=== PATIENT | female | born 1940 | race Caucasian/White ===

== ENCOUNTER → 2016-11-06 | Outpatient (CLI) | payer MEDICARE, BC, OTHER ==
[~2016-11-06] MED LIST: CARV6.25 PO; DIGO0.12 PO; FLEC25TA PO; FLEC50TA PO; LEXA1TAB PO; TYLE500T78 PO; VITA200015 PO; WARF-18 PO; XANA0.25 PO
[2016-11-06 13:49] LABS: INR 2.36
== END ==
LOC: M SMT 10:30
PROVIDERS: ATTEND Emergency Medicine
DX: I48.0 Paroxysmal atrial fibrillation (principal)

== ENCOUNTER → 2016-12-04 | Outpatient (REF) | payer MEDICARE, OTHER ==
[2016-12-04 14:18] LABS: INR 2.46
== END ==
LOC: M LABSMT 13:16
PROVIDERS: ATTEND Emergency Medicine
DX: I48.0 Paroxysmal atrial fibrillation (principal); Z51.81 Encounter for therapeutic drug level monitoring; Z79.01 Long term (current) use of anticoagulants

== ENCOUNTER → 2017-01-04 | Outpatient (CLI) | payer MEDICARE, BC, OTHER ==
[2017-01-04 18:20] LABS: INR 2.43
== END ==
LOC: M SMT 14:29
PROVIDERS: ATTEND Emergency Medicine
DX: I48.0 Paroxysmal atrial fibrillation (principal)

== ENCOUNTER → 2017-02-09 | Outpatient (CLI) | payer MEDICARE, BC, OTHER ==
[2017-02-09 14:12] LABS: INR 2.43
== END ==
LOC: M SMT 08:41
PROVIDERS: ATTEND Emergency Medicine
DX: I48.0 Paroxysmal atrial fibrillation (principal); Z51.81 Encounter for therapeutic drug level monitoring; Z79.01 Long term (current) use of anticoagulants

== ENCOUNTER → 2017-03-07 | Outpatient (CLI) | payer MEDICARE, BC, OTHER ==
[2017-03-07 13:30] LABS: INR 2.3
== END ==
LOC: M SMT 09:26
PROVIDERS: ATTEND Emergency Medicine
DX: Z51.81 Encounter for therapeutic drug level monitoring (principal); Z79.01 Long term (current) use of anticoagulants; I48.0 Paroxysmal atrial fibrillation

== ENCOUNTER → 2017-03-13 | Outpatient (CLI) | payer MEDICARE, BC, OTHER ==
[2017-03-13 13:41] LABS: INR 2.36
[2017-03-13 13:45] LABS: ALBUMIN 3.2 GM/DL (3.2-5.2); ALBUMIN/GLOBULIN RATIO 0.94 (1.00-1.93); BASO % 0.7 % (0.0-1.0); BILIRUBIN,TOTAL 0.5 MG/DL (0.2-1.0); CALCIUM LEVEL 8.3 MG/DL (8.8-10.2); CREATININE FOR GFR 1.1 MG/DL (0.55-1.02); DIGOXIN LEVEL 1.2 NG/ML (0.5-2.0); EOS # 0.2 K/mm3 (0.0-0.50); EOS % 3.3 % (0.0-3.0); GLOMERULAR FILTRATION RATE 51.4 (>39); LARGE UNSTAINED CELL # 0.1 K/mm3 (0.0-0.4); LARGE UNSTAINED CELL % 1.5 % (0.0-4.0); LYMPH # 1.5 K/mm3 (1.5-4.5); LYMPH % 25.8 % (24.0-44.0); MAGNESIUM LEVEL 1.8 MG/DL (1.8-2.4); MEAN CORPUSCULAR HGB CONC 32.7 g/dl (32.0-36.5); MEAN CORPUSCULAR VOLUME 91.8 fl (80.0-96.0); MONO # 0.4 K/mm3 (0.0-0.8); MONO % 7.7 % (0.0-5.0); NEUTROPHILS # 3.3 K/mm3 (1.8-7.7); PLATELET COUNT, AUTOMATED 183 k/mm3 (150-450); POTASSIUM SERUM 3.8 MEQ/L (3.5-5.1); RED CELL DISTRIBUTION WIDTH 12.7 % (11.5-14.5); TOTAL PROTEIN 6.6 GM/DL (6.4-8.2); WHITE BLOOD COUNT 5.4 K/mm3 (4.0-10.0)
== END ==
LOC: M SMT 09:24
PROVIDERS: ATTEND Emergency Medicine
DX: I48.0 Paroxysmal atrial fibrillation (principal); E78.2 Mixed hyperlipidemia; E55.9 Vitamin D deficiency, unspecified; I10 Essential (primary) hypertension

== ENCOUNTER → 2017-04-05 | Outpatient (CLI) | payer MEDICARE, BC, OTHER ==
[2017-04-05 17:37] LABS: INR 2.68
== END ==
LOC: M SMT 14:08
PROVIDERS: ATTEND Emergency Medicine
DX: I48.0 Paroxysmal atrial fibrillation (principal); Z51.81 Encounter for therapeutic drug level monitoring; Z79.01 Long term (current) use of anticoagulants

== ENCOUNTER → 2017-05-02 | Outpatient (CLI) | payer MEDICARE, BC, OTHER ==
[2017-05-02 13:25] LABS: INR 2.01
== END ==
LOC: M SMT 10:33
PROVIDERS: ATTEND Emergency Medicine
DX: I80.02 Phlebitis and thrombophlebitis of superficial vessels of left lower extremity (principal); Z51.81 Encounter for therapeutic drug level monitoring; Z79.01 Long term (current) use of anticoagulants

== ENCOUNTER → 2017-05-03 | Outpatient (REF) | payer MEDICARE, BC, OTHER | LOC: M LAB REF 20:03 | PROVIDERS: ATTEND Physician Assistant | DX: J04.0 Acute laryngitis (principal) ==

== ENCOUNTER → 2017-06-05 | Outpatient (CLI) | payer MEDICARE, BC, OTHER ==
[2017-06-05 18:50] LABS: INR 2.21
== END ==
LOC: M SMT 14:07
PROVIDERS: ATTEND Emergency Medicine
DX: I80.02 Phlebitis and thrombophlebitis of superficial vessels of left lower extremity (principal); Z51.81 Encounter for therapeutic drug level monitoring; Z79.01 Long term (current) use of anticoagulants

== ENCOUNTER → 2017-07-09 | Outpatient (CLI) | payer MEDICARE, BC, OTHER ==
[2017-07-09 13:38] LABS: INR 2.16
== END ==
LOC: M SMT 11:10
PROVIDERS: ATTEND Emergency Medicine
DX: I80.02 Phlebitis and thrombophlebitis of superficial vessels of left lower extremity (principal)

== ENCOUNTER → 2017-07-20 | Outpatient (CLI) | payer MEDICARE, BC, OTHER ==
--- NOTE | 2017-07-20 11:52 | REPMRS ---
Patient History Patient is postmenopausal and has history of breast cancer at age 67.The patient states she had a clinical breast exam in June 2017.Patient states she has had a 15 pound weight loss due to stress. Digital Mammo Screening Bilat: July 20, 2017 - Exam #: [id number] Bilateral CC and MLO view(s) were taken. Technologist: Jodie Mao, Technologist Prior study comparison: July 18, 2016, bilateral digital mammo screening bilat performed at [facility]. July 14, 2015, bilateral digital mammo screening bilat performed at [facility]. FINDINGS: The breast tissue is heterogeneously dense. This may lower the sensitivity of mammography. There is no evidence of cancer on this mammogram. No significant changes when compared with prior studies. ASSESSMENT: BI-RADS/ACR category 2 mammogram. Benign finding(s). Recommendation Routine screening mammogram of both breasts in 1 year (for women over age 40). This mammogram was interpreted with the aid of an FDA-approved computer-aided dectection system. Electronically Signed By: Jim Pedraza MD 07/20/17 [id number]
== END ==
LOC: M RAD 10:52
PROVIDERS: ATTEND Emergency Medicine
DX: Z12.31 Encounter for screening mammogram for malignant neoplasm of breast (principal)

== ENCOUNTER → 2017-08-10 | Outpatient (CLI) | payer MEDICARE, BC, OTHER ==
[2017-08-10 13:46] LABS: INR 1.91
== END ==
LOC: M SMT 10:21
PROVIDERS: ATTEND Emergency Medicine
DX: I80.02 Phlebitis and thrombophlebitis of superficial vessels of left lower extremity (principal)

== ENCOUNTER → 2017-09-12 | Outpatient (CLI) | payer MEDICARE, BC, OTHER ==
[2017-09-12 13:14] LABS: BASO % 0.3 % (0.0-1.0); EOS # 0.2 10^3/uL (0.0-0.50); IMMATURE GRANULOCYTE % 0.3 % (0-0); LYMPH # 1.4 10^3/uL (1.5-4.5); LYMPH % 21.9 % (24.0-44.0); MEAN CORPUSCULAR HEMOGLOBIN 29.5 pg (27.0-33.0); MEAN CORPUSCULAR HGB CONC 32.7 g/dl (32.0-36.5); MEAN CORPUSCULAR VOLUME 90.3 fl (80.0-96.0); MONO # 0.6 10^3/uL (0.0-0.8); MONO % 8.8 % (0.0-5.0); NEUTROPHILS # 4.2 10^3/uL (1.8-7.7); NEUTROPHILS % 65.7 % (36.0-66.0); PLATELET COUNT, AUTOMATED 212 10^3/uL (150-450); RED CELL DISTRIBUTION WIDTH 12.9 % (11.5-14.5); WHITE BLOOD COUNT 6.4 10^3/uL (4.0-10.0)
[2017-09-12 13:20] LABS: INR 2.09
[2017-09-12 14:04] LABS: ALBUMIN 3.3 GM/DL (3.2-5.2); ALBUMIN/GLOBULIN RATIO 0.83 (1.00-1.93); BILIRUBIN,TOTAL 0.4 MG/DL (0.2-1.0); CREATININE FOR GFR 1.09 MG/DL (0.55-1.02); DIGOXIN LEVEL 1.2 NG/ML (0.5-2.0); GLOMERULAR FILTRATION RATE 51.8 (>39); MAGNESIUM LEVEL 1.9 MG/DL (1.8-2.4); TOTAL PROTEIN 7.3 GM/DL (6.4-8.2)
== END ==
LOC: M SMT 09:19
PROVIDERS: ATTEND Emergency Medicine
DX: I48.0 Paroxysmal atrial fibrillation (principal); E78.2 Mixed hyperlipidemia; E55.9 Vitamin D deficiency, unspecified; I10 Essential (primary) hypertension

== ENCOUNTER → 2017-10-15 | Outpatient (CLI) | payer MEDICARE, BC, OTHER ==
[2017-10-15 11:36] LABS: INR 2.2
== END ==
LOC: M SMT 09:21
PROVIDERS: ATTEND Emergency Medicine
DX: I80.02 Phlebitis and thrombophlebitis of superficial vessels of left lower extremity (principal); Z79.01 Long term (current) use of anticoagulants

== ENCOUNTER → 2017-11-14 | Outpatient (CLI) | payer MEDICARE, BC, OTHER ==
[2017-11-14 13:29] LABS: INR 2.46; PROTHROMBIN TIME 27.7 SECONDS (12.4-14.5)
== END ==
LOC: M SMT 09:57
DX: I80.02 Phlebitis and thrombophlebitis of superficial vessels of left lower extremity (principal)
CPT/HCPCS: 85610

== ENCOUNTER → 2017-12-14 | Outpatient (CLI) | payer MEDICARE, BC, OTHER ==
[2017-12-14 13:54] LABS: INR 2.52; PROTHROMBIN TIME 28.2 SECONDS (12.4-14.5)
== END ==
LOC: M SMT 10:04
DX: I80.02 Phlebitis and thrombophlebitis of superficial vessels of left lower extremity (principal); Z79.01 Long term (current) use of anticoagulants
CPT/HCPCS: 85610

== ENCOUNTER → 2018-01-14 | Outpatient (CLI) | payer MEDICARE, BC, OTHER ==
[2018-01-14 10:54] LABS: INR 2.35; PROTHROMBIN TIME 26.6 SECONDS (12.4-14.5)
== END ==
LOC: M SMT 09:37
DX: I80.02 Phlebitis and thrombophlebitis of superficial vessels of left lower extremity (principal)
CPT/HCPCS: 85610

== ENCOUNTER → 2018-02-15 | Outpatient (CLI) | payer MEDICARE, BC, OTHER ==
[2018-02-15 13:17] LABS: PROTHROMBIN TIME 26.2 SECONDS (12.4-14.5)
== END ==
LOC: M SMT 10:02
DX: I80.02 Phlebitis and thrombophlebitis of superficial vessels of left lower extremity (principal)
CPT/HCPCS: 85610

== ENCOUNTER → 2018-03-13 | Outpatient (CLI) | payer MEDICARE, BC, OTHER ==
[2018-03-13 13:36] LABS: BASO % 0.5 % (0.0-1.0); EOS # 0.2 10^3/uL (0.0-0.50); EOS % 3.3 % (0.0-3.0); HEMATOCRIT 35.7 % (36.0-47.0); HEMOGLOBIN 11.9 g/dl (12.0-15.5); IMMATURE GRANULOCYTE % 0.3 % (0-3.0); LYMPH # 1.5 10^3/uL (1.5-4.5); LYMPH % 24.4 % (24.0-44.0); MEAN CORPUSCULAR HEMOGLOBIN 30.1 pg (27.0-33.0); MEAN CORPUSCULAR HGB CONC 33.3 g/dl (32.0-36.5); MEAN CORPUSCULAR VOLUME 90.2 fl (80.0-96.0); MONO # 0.5 10^3/uL (0.0-0.8); MONO % 8.2 % (0.0-5.0); NEUTROPHILS # 3.9 10^3/uL (1.8-7.7); NEUTROPHILS % 63.3 % (36.0-66.0); PLATELET COUNT, AUTOMATED 213 10^3/uL (150-450); RED BLOOD COUNT 3.96 10^6/uL (4.00-5.40); WHITE BLOOD COUNT 6.1 10^3/uL (4.0-10.0)
[2018-03-13 13:48] LABS: INR 2.11; PROTHROMBIN TIME 24.4 SECONDS (12.4-14.5)
[2018-03-13 14:04] LABS: ALBUMIN 3.3 GM/DL (3.2-5.2); ALBUMIN/GLOBULIN RATIO 0.89 (1.00-1.93); ALKALINE PHOSPHATASE 80 U/L (45-117); ALT/SGPT 14 U/L (12-78); ANION GAP 3 MEQ/L (8-16); AST/SGOT 17 U/L (7-37); BILIRUBIN,TOTAL 0.4 MG/DL (0.2-1.0); BLOOD UREA NITROGEN 20 MG/DL (7-18); CALCIUM LEVEL 8.6 MG/DL (8.8-10.2); CARBON DIOXIDE LEVEL 33 MEQ/L (21-32); CHLORIDE LEVEL 107 MEQ/L (98-107); CHOLESTEROL LEVEL 170 MG/DL (<200); CHOLESTEROL RISK RATIO 2.537 (<5); CREATININE FOR GFR 1.09 MG/DL (0.55-1.30); DIGOXIN LEVEL 0.9 NG/ML (0.5-2.0); GLOMERULAR FILTRATION RATE 51.8 (>39); GLUCOSE, FASTING 93 MG/DL (70-100); HDL CHOLESTEROL 67 MG/DL (>40); LDL CHOLESTEROL 83.6 MG/DL (<100); MAGNESIUM LEVEL 1.8 MG/DL (1.8-2.4); NON-HDL-C 103 MG/DL; POTASSIUM SERUM 4.1 MEQ/L (3.5-5.1); SODIUM LEVEL 143 MEQ/L (136-145); TRIGLYCERIDES LEVEL 97 MG/DL (<150)
== END ==
LOC: M SMT 09:32
DX: I48.0 Paroxysmal atrial fibrillation (principal); E78.2 Mixed hyperlipidemia; E55.9 Vitamin D deficiency, unspecified; I10 Essential (primary) hypertension
CPT/HCPCS: 80162

== ENCOUNTER → 2018-04-10 | Outpatient (CLI) | payer MEDICARE, BC, OTHER ==
[2018-04-10 13:16] LABS: INR 2.13; PROTHROMBIN TIME 24.6 SECONDS (12.4-14.5)
== END ==
LOC: M SMT 09:14
DX: I80.02 Phlebitis and thrombophlebitis of superficial vessels of left lower extremity (principal)
CPT/HCPCS: 85610

== ENCOUNTER → 2018-05-22 | Outpatient (CLI) | payer MEDICARE, BC, OTHER ==
[2018-05-22 13:35] LABS: INR 2.08; PROTHROMBIN TIME 23.8 SECONDS (12.1-14.4)
== END ==
LOC: M SMT 10:02
DX: I80.02 Phlebitis and thrombophlebitis of superficial vessels of left lower extremity (principal); Z79.01 Long term (current) use of anticoagulants
CPT/HCPCS: 85610

== ENCOUNTER 2018-07-10 17:37 | Emergency (ER) | payer MEDICARE, BC, OTHER | END 2018-07-10 20:20 | disposition home or self-care (01) | LOC: M ED 17:37 | DX: Z20.7 Contact with and (suspected) exposure to pediculosis, acariasis and other infestations (principal); I10 Essential (primary) hypertension; J45.909 Unspecified asthma, uncomplicated; Z95.0 Presence of cardiac pacemaker; Z79.01 Long term (current) use of anticoagulants; Z79.899 Other long term (current) drug therapy; Z88.1 Allergy status to other antibiotic agents; Z88.5 Allergy status to narcotic agent; Z88.2 Allergy status to sulfonamides; Z88.8 Allergy status to other drugs, medicaments and biological substances; Z91.89 Other specified personal risk factors, not elsewhere classified | CPT/HCPCS: 99282 ==

== ENCOUNTER → 2018-08-14 | Outpatient (CLI) | payer MEDICARE, BC, OTHER | LOC: M RAD 09:47 | DX: Z12.31 Encounter for screening mammogram for malignant neoplasm of breast (principal) | CPT/HCPCS: 77067 ==

== ENCOUNTER → 2018-09-17 | Outpatient (CLI) | payer MEDICARE, BC, OTHER ==
[2018-09-17 13:50] LABS: BASO % 0.5 % (0.0-1.0); EOS # 0.2 10^3/uL (0.0-0.50); EOS % 3.2 % (0.0-3.0); HEMATOCRIT 38.3 % (36.0-47.0); HEMOGLOBIN 12.3 g/dl (12.0-15.5); IMMATURE GRANULOCYTE % 0.3 % (0-3.0); LYMPH # 1.7 10^3/uL (1.5-4.5); MEAN CORPUSCULAR HEMOGLOBIN 29.4 pg (27.0-33.0); MEAN CORPUSCULAR HGB CONC 32.1 g/dl (32.0-36.5); MEAN CORPUSCULAR VOLUME 91.6 fl (80.0-96.0); MONO # 0.5 10^3/uL (0.0-0.8); NEUTROPHILS # 3.5 10^3/uL (1.8-7.7); PLATELET COUNT, AUTOMATED 214 10^3/uL (150-450); RED BLOOD COUNT 4.18 10^6/uL (4.00-5.40); RED CELL DISTRIBUTION WIDTH 12.8 % (11.5-14.5)
[2018-09-17 14:03] LABS: INR 2.24; PROTHROMBIN TIME 25.2 SECONDS (12.1-14.4)
[2018-09-17 14:23] LABS: ALBUMIN 3.3 GM/DL (3.2-5.2); ALBUMIN/GLOBULIN RATIO 0.97 (1.00-1.93); ALKALINE PHOSPHATASE 83 U/L (45-117); ALT/SGPT 15 U/L (12-78); ANION GAP 5 MEQ/L (8-16); AST/SGOT 16 U/L (7-37); BILIRUBIN,TOTAL 0.6 MG/DL (0.2-1.0); BLOOD UREA NITROGEN 22 MG/DL (7-18); CALCIUM LEVEL 8.7 MG/DL (8.8-10.2); CARBON DIOXIDE LEVEL 32 MEQ/L (21-32); CHLORIDE LEVEL 104 MEQ/L (98-107); CHOLESTEROL LEVEL 173 MG/DL (<200); CHOLESTEROL RISK RATIO 2.436 (<5); DIGOXIN LEVEL 0.1 NG/ML (0.5-2.0); GLOMERULAR FILTRATION RATE 46.3 (>39); GLUCOSE, FASTING 94 MG/DL (70-100); HDL CHOLESTEROL 71 MG/DL (>40); LDL CHOLESTEROL 85 MG/DL (<100); MAGNESIUM LEVEL 2.1 MG/DL (1.8-2.4); NON-HDL-C 102 MG/DL; SODIUM LEVEL 141 MEQ/L (136-145); TOTAL 25(OH) VITAMIN D 22.9 NG/ML (30.0-100.0); TOTAL PROTEIN 6.7 GM/DL (6.4-8.2); TRIGLYCERIDES LEVEL 86 MG/DL (<150)
== END ==
LOC: M SMT 08:04
DX: I48.0 Paroxysmal atrial fibrillation (principal); E78.2 Mixed hyperlipidemia; E55.9 Vitamin D deficiency, unspecified; I10 Essential (primary) hypertension; Z51.81 Encounter for therapeutic drug level monitoring; Z79.01 Long term (current) use of anticoagulants
CPT/HCPCS: 80162

== ENCOUNTER → 2019-08-14 | Outpatient (CLI) | payer MEDICARE, OTHER ==
[~2019-08-14] MED LIST changes: +ACET-683 PO; +ELIM5CRE2 TOP; +FLEC50HA PO; -FLEC50TA PO; +METO1TAB7 PO
--- NOTE | 2019-08-14 15:29 | REPMRS ---
Patient History The patient states she has not had a clinical breast exam in over a year. Digital Mammo Screening Bilat: August 14, 2019 - Exam #: [id number] Bilateral CC and MLO view(s) were taken. Technologist: Karishma Lo, Technologist Prior study comparison: August 14, 2018, bilateral digital mammo screening bilat performed at [facility]. July 20, 2017, bilateral digital mammo screening bilat performed at [facility]. July 18, 2016, bilateral digital mammo screening bilat performed at [facility]. FINDINGS: There are scattered fibroglandular densities. Post-treatment changes are again noted on the right. A pacemaker power plant is superimposed in the left axilla. There has been no change in the appearance of the mammogram from the prior studies. There is a mild amount of scattered fibroglandular density which is fairly symmetric. There is no interval development of dominant mass, architectural distortion, or grouped microcalcification suggestive of malignancy. 3-D tomosynthesis shows no additional findings. Assessment: BI-RADS/ACR category 2 mammogram. Benign Findings. Recommendation Routine screening mammogram of both breasts in 1 year (for women over age 40). This mammogram was interpreted with the aid of an FDA-approved computer-aided dectection system. Electronically Signed By: Bartolo Walter MD 08/14/19 [id number]
== END ==
LOC: M RAD 10:28
PROVIDERS: ATTEND Physician Assistant
DX: Z12.31 Encounter for screening mammogram for malignant neoplasm of breast (principal)

== ENCOUNTER 2019-08-29 12:32 | Day surgery (SDC) | payer MEDICARE, OTHER ==
[~2019-08-29] VITALS: Ht 170.2 cm; Wt 100.2 kg
[~2019-08-29 12:32] MED LIST changes: +NS 1,000 ML IV ONE
[2019-08-29] MEDS ORDERED: LIDOCAINE 2% INJ 100 MG/5 ML SDV (FOR ANES.) As Ordered ONE (13:18)
[2019-08-29] MEDS ORDERED: PROPOFOL 200 MG/20 ML VIAL As Ordered ONE (13:18)
[2019-08-29 13:22] LABS: INR 1.21
[2019-08-29] MEDS ORDERED: fentaNYL 100 MCG/2 ML INJECTION (J3010) As Ordered ONE (14:08)
[2019-08-29] MEDS ORDERED: SUCCINYLCHOLINE 100 MG/5 ML SYRINGE (J0330) As Ordered ONE (14:26)
[2019-08-29] MEDS ORDERED: ONDANSETRON 4MG/2ML VIAL (J2405) As Ordered ONE (14:29)
--- NOTE | 2019-08-29 14:33 | ROOR ---
Patient Name: Gogo Schmitt Procedure Date: 08/29/2019 1:55 PM Date of : 1940 Age: 79 Room: [facility] Gender: Female Note Status: Finalized Procedure: Upper GI endoscopy Indications: Dysphagia, Abnormal UGI series Providers: Audi FULLER MD Referring MD: Felicity Moreno MD Requesting Provider: Medicines: Monitored Anesthesia Care Complications: Laryngospasm, treated with administration of oxygen, reversal agent administered Procedure: Pre-Anesthesia Assessment: - The heart rate, respiratory rate, oxygen saturations, blood pressure, adequacy of pulmonary ventilation, and response to care were monitored throughout the procedure. The Endoscope was introduced through the mouth, and advanced to the second part of duodenum. The upper GI endoscopy was accomplished without difficulty. The patient tolerated the procedure well. Findings: One benign-appearing, intrinsic moderate (circumferential scarring or stenosis; an endoscope may pass) stenosis was found at the gastroesophageal junction. This stenosis measured 1 cm (in length). The stenosis was traversed. A TTS dilator was passed through the scope. Dilation with a 15-16.5-18 mm x 8 cm CRE balloon dilator was performed to 15 mm. The dilation site was examined and showed moderate improvement in luminal narrowing. Estimated blood loss was minimal. This was biopsied with a cold forceps for histology. A medium-sized hiatal hernia was present. The exam of the stomach was otherwise normal. The examined duodenum was normal. Impression: - Benign-appearing esophageal stenosis. Dilated. Biopsied. - Medium-sized hiatal hernia. - Stomach is otherwise normal. - Normal examined duodenum. Recommendation: - Observe patient's clinical course. - Telephone endoscopist for pathology results in 2 weeks. - Use Prilosec (omeprazole) 40 mg PO daily indefinitely. - Resume Coumadin (warfarin) at prior dose tomorrow. Audi Fuller MD Audi FULLER MD 08/29/2019 2:32:53 PM Electronically signed by Audi FULLER MD Number of Addenda: 0 Note Initiated On: 08/29/2019 1:55 PM Estimated Blood Loss: Estimated blood loss was minimal.
[2019-08-29 15:00] VITALS: BP 133/61
== END 2019-08-29 15:12 | disposition home or self-care (01) ==
LOC: M OPP 12:32
PROVIDERS: ATTEND Internal Medicine Gastroenterology
DX: K22.2 Esophageal obstruction (principal); K44.9 Diaphragmatic hernia without obstruction or gangrene; R13.10 Dysphagia, unspecified; R93.3 Abnormal findings on diagnostic imaging of other parts of digestive tract; I48.91 Unspecified atrial fibrillation; I10 Essential (primary) hypertension; Z79.01 Long term (current) use of anticoagulants; Z79.899 Other long term (current) drug therapy; Z88.0 Allergy status to penicillin; Z88.2 Allergy status to sulfonamides; Z88.5 Allergy status to narcotic agent; Z88.4 Allergy status to anesthetic agent; Z88.8 Allergy status to other drugs, medicaments and biological substances; Z95.0 Presence of cardiac pacemaker
CPT/HCPCS: 36415; 43239; 43249; 85610; 88305; J0330; J2405; J3010

== ENCOUNTER 2019-09-10 16:58 | Emergency (ER) | payer MEDICARE, OTHER ==
[~2019-09-10] VITALS: Ht 170.2 cm; Wt 90.9 kg
[~2019-09-10 16:58] MED LIST changes: -NS 1,000 ML IV ONE
[2019-09-10 17:10] VITALS: BP 173/79
[2019-09-10] MEDS ORDERED: MORPHINE 2 MG/ML 1ML VIAL (J2270) IV ONE (17:30)
[2019-09-10] MEDS ORDERED: ADACEL/BOOSTRIX VACCINE (DIPHTH/PERTUSS/ACELL/TETANUS)0.5ML SYR (90715) IM ONE (17:30)
[2019-09-10 17:57] LABS: INR 2.09; PARTIAL THROMBOPLASTIN TIME 36.7 SECONDS (25.0-38.4); PROTHROMBIN TIME 23.3 SECONDS (11.8-14.0)
--- NOTE | 2019-09-10 18:41 | REP ---
HISTORY: Trauma. AP pelvis and two views of the left hip were obtained. There are bilateral hip degenerative changes with mild asymmetric hip joint space narrowing without prominent marginal osteophytosis or significant buttressing. Degenerative changes seen involving the imaged portion of the spine. There is no evidence of acute fracture, dislocation or subluxation. Two views of the left hip show degenerative changes. There is no acute fracture. Please see the AP pelvis report. Electronically Signed by Andrea Bettencourt DO 09/10/2019 07:48 P
--- NOTE | 2019-09-10 18:42 | REP ---
HISTORY: Trauma. COMPARISON: None. Degenerative changes are seen involving the hip and knee. There is no acute fracture or destructive osseous lesion. Electronically Signed by Andrea Bettencourt DO 09/10/2019 07:49 P
--- NOTE | 2019-09-10 18:43 | REP ---
HISTORY: Trauma. COMPARISON: None. Degenerative changes seen throughout the hand. These are mild to moderate. There is no acute fracture. IMPRESSION: Chronic changes. Electronically Signed by Andrea Bettencourt DO 09/10/2019 07:49 P
--- NOTE | 2019-09-10 18:44 | REP ---
HISTORY: Pain after trauma. FINDINGS: No acute fracture or destructive osseous lesion. Electronically Signed by Andrea Bettencourt DO 09/10/2019 07:49 P
== END 2019-09-10 19:15 | disposition home or self-care (01) ==
LOC: M ED 16:58 → EDBD 16:58 → M ED 19:15
DX: S80.12XA Contusion of left lower leg, initial encounter (principal); W10.8XXA Fall (on) (from) other stairs and steps, initial encounter; Y92.89 Other specified places as the place of occurrence of the external cause; M16.12 Unilateral primary osteoarthritis, left hip; I10 Essential (primary) hypertension; Z85.3 Personal history of malignant neoplasm of breast; Z88.2 Allergy status to sulfonamides; Z88.5 Allergy status to narcotic agent; Z88.8 Allergy status to other drugs, medicaments and biological substances; Z79.01 Long term (current) use of anticoagulants; Z79.899 Other long term (current) drug therapy
CPT/HCPCS: 73130; 73502; 73552; 73590; 85610; 85730; 90471; 90715; 96374; 99284; J2270

== ENCOUNTER 2019-09-15 14:32 | Emergency (ER) | payer MEDICARE, OTHER ==
[~2019-09-15] VITALS: Ht 170.2 cm; Wt 101.6 kg
[2019-09-15] MEDS ORDERED: PANT40TA3 (14:41)
[2019-09-15] MEDS ORDERED: HYDR12.55 (14:41)
[2019-09-15 16:36] LABS: BASO % 0.5 % (0.0-1.0); EOS # 0.3 10^3/uL (0.0-0.5); EOS % 3.7 % (0.0-3.0); HEMATOCRIT 33.2 % (36.0-47.0); HEMOGLOBIN 10.7 g/dl (12.0-15.5); LYMPH # 1.6 10^3/uL (1.5-5.0); LYMPH % 19.3 % (24.0-44.0); MEAN CORPUSCULAR HEMOGLOBIN 30.1 pg (27.0-33.0); MEAN CORPUSCULAR HGB CONC 32.2 g/dl (32.0-36.5); MEAN CORPUSCULAR VOLUME 93.3 fl (80.0-96.0); MONO # 0.8 10^3/uL (0.0-0.8); MONO % 9.1 % (0.0-5.0); NEUTROPHILS # 5.5 10^3/uL (1.5-8.5); NEUTROPHILS % 67.2 % (36.0-66.0); PLATELET COUNT, AUTOMATED 218 10^3/uL (150-450); RED BLOOD COUNT 3.56 10^6/uL (4.00-5.40); WHITE BLOOD COUNT 8.2 10^3/uL (4.0-10.0)
[2019-09-15 16:59] LABS: ERYTHROCYTE SEDIMENTATION RATE 57 mm/hr (0-30)
[2019-09-15 17:10] LABS: ALBUMIN 3.1 GM/DL (3.2-5.2); BILIRUBIN,DIRECT 0.1 MG/DL (0.0-0.2); BILIRUBIN,TOTAL 0.6 MG/DL (0.2-1.0); C REACTIVE PROTEIN QUANTITATIV 1.42 MG/DL (0.00-0.30); CALCIUM LEVEL 8.5 MG/DL (8.8-10.2); CREATININE FOR GFR 1.43 MG/DL (0.55-1.30); GLOMERULAR FILTRATION RATE 37.7 (>39); POTASSIUM SERUM 3.9 MEQ/L (3.5-5.1); TOTAL PROTEIN 6.9 GM/DL (6.4-8.2)
--- NOTE | 2019-09-15 17:20 | REP ---
LEFT LOWER LEG, TWO VIEWS: AP and lateral views of the left lower leg were performed. No acute fracture or dislocation is seen. Degenerative changes are noted at the knee. IMPRESSION: No fracture or dislocation. Electronically Signed by Jim Pedraza MD 09/17/2019 10:23 A
--- NOTE | 2019-09-15 17:21 | REP ---
LEFT KNEE, FIVE VIEWS: Five views of the left knee were performed. There is no fracture or dislocation. There is diffuse joint space narrowing with subchondral sclerosis and mild diffuse spurring. I do not see a significant joint effusion. IMPRESSION: Mild degenerative changes diffusely. No acute fracture or dislocation. Electronically Signed by Jim Pedraza MD 09/17/2019 10:23 A
[2019-09-15 17:39] LABS: INR 2.65; PARTIAL THROMBOPLASTIN TIME 45.5 SECONDS (25.0-38.4); PROTHROMBIN TIME 28.1 SECONDS (11.8-14.0)
--- NOTE | 2019-09-15 18:19 | REPVR ---
PROCEDURE INFORMATION: Exam: US Duplex Left Lower Extremity Veins, Limited Exam date and time: 09/15/2019 6:04 PM Clinical history: 79 years old, female; Injury or trauma; Fall; Initial encounter; Blunt trauma (contusions or hematomas); Left; Lower extremity, lower leg level; Vessel not specified; Additional info: Inc swelling/ro dvt TECHNIQUE: Imaging protocol: Real-time Duplex ultrasound of the Left Lower Extremity with 2-D juan scale, color Doppler flow and spectral waveform analysis with image documentation. Limited exam focused on the left lower extremity veins. COMPARISON: No relevant prior studies available. FINDINGS: Left deep veins: Unremarkable. The common femoral, femoral, proximal profunda femoral and popliteal veins are patent without thrombus. Normal Doppler waveforms. Normal compressibility and/or augmentation response. Left superficial veins: Unremarkable. Saphenofemoral junction is patent without thrombus. Soft tissues: Unremarkable. IMPRESSION: No acute findings. No evidence of deep vein thrombosis. Electronically signed by: Taz Beltran On 09/15/2019 18:19:09 PM
--- NOTE | 2019-09-15 18:46 | REPVR ---
PROCEDURE INFORMATION: Exam: US Left Non-Vascular Joint or Other Extremity Structure, Limited Lower Extremity Exam date and time: 09/15/2019 6:15 PM Clinical history: 79 years old, female; Injury or trauma; Fall; Initial encounter; Swelling (edema); Lower leg; Left; Additional info: Inc swelling TECHNIQUE: Imaging protocol: Left US Non-Vascular Joint or Other Extremity Structure. Limited exam of the lower extremity. COMPARISON: CR Knee, complete 09/15/2019 3:59 PM FINDINGS: Soft tissues: Just anterior to the tibia is a fluid collection measuring 10 CM in length by 4 CM in transverse dimension by 1 CM in thickness. This is very suspicious for a hematoma associated with marked soft tissue swelling. IMPRESSION: Linear hematoma along the anterior nowak with soft tissue swelling. Electronically signed by: Taz Beltran On 09/15/2019 18:46:51 PM
[2019-09-15 19:51] VITALS: BP 133/62
== END 2019-09-15 19:52 | disposition home or self-care (01) ==
LOC: M ED 14:32
DX: S80.12XA Contusion of left lower leg, initial encounter (principal); W10.8XXA Fall (on) (from) other stairs and steps, initial encounter; I48.91 Unspecified atrial fibrillation; I10 Essential (primary) hypertension; J45.909 Unspecified asthma, uncomplicated; K21.9 Gastro-esophageal reflux disease without esophagitis; Z88.2 Allergy status to sulfonamides; Z88.6 Allergy status to analgesic agent; Z88.1 Allergy status to other antibiotic agents; Z88.8 Allergy status to other drugs, medicaments and biological substances; Z79.01 Long term (current) use of anticoagulants; Z79.899 Other long term (current) drug therapy; R22.42 Localized swelling, mass and lump, left lower limb

== ENCOUNTER → 2020-03-19 | Outpatient (REF) | payer MEDICARE, OTHER ==
[~2020-03-19] MED LIST changes: +HYDR12.55; +PANT40TA3
[2020-03-19 13:18] LABS: ALBUMIN 3.1 GM/DL (3.2-5.2); BILIRUBIN,TOTAL 0.6 MG/DL (0.2-1.0); CALCIUM LEVEL 8.8 MG/DL (8.8-10.2); CHOLESTEROL RISK RATIO 3.016 (<5); CREATININE FOR GFR 1.13 MG/DL (0.55-1.30); GLOMERULAR FILTRATION RATE 49.4 (>39); POTASSIUM SERUM 3.9 MEQ/L (3.5-5.1); TOTAL PROTEIN 6.5 GM/DL (6.4-8.2)
[2020-03-19 13:22] LABS: BASO % 0.6 % (0.0-1.0); EOS # 0.3 10^3/uL (0.0-0.5); EOS % 4.5 % (0.0-3.0); HEMOGLOBIN 12.1 g/dl (12.0-15.5); LYMPH # 1.8 10^3/uL (1.5-5.0); LYMPH % 28.1 % (24.0-44.0); MEAN CORPUSCULAR HEMOGLOBIN 30.1 pg (27.0-33.0); MEAN CORPUSCULAR HGB CONC 32.7 g/dl (32.0-36.5); MONO # 0.6 10^3/uL (0.0-0.8); NEUTROPHILS # 3.7 10^3/uL (1.5-8.5); NEUTROPHILS % 57.5 % (36.0-66.0); PLATELET COUNT, AUTOMATED 224 10^3/uL (150-450); RED BLOOD COUNT 4.02 10^6/uL (4.00-5.40); WHITE BLOOD COUNT 6.5 10^3/uL (4.0-10.0)
[2020-03-19 13:26] LABS: TOTAL 25(OH) VITAMIN D 19.4 NG/ML (30.0-100.0)
== END ==
LOC: M LABDRWAD 12:12
PROVIDERS: ATTEND Physician Assistant
DX: I10 Essential (primary) hypertension (principal); E55.9 Vitamin D deficiency, unspecified; F32.9 Major depressive disorder, single episode, unspecified

== ENCOUNTER → 2020-03-31 | Outpatient (REF) | payer MEDICARE, OTHER ==
[2020-03-31 17:16] LABS: CREATININE FOR GFR 1.14 MG/DL (0.55-1.30); GLOMERULAR FILTRATION RATE 48.9 (>39); POTASSIUM SERUM 4.4 MEQ/L (3.5-5.1)
== END ==
LOC: M LABDRWAD 16:12
PROVIDERS: ATTEND Physician Assistant
DX: I10 Essential (primary) hypertension (principal)

== ENCOUNTER → 2020-04-29 | Outpatient (CLI) | payer MEDICARE, OTHER | LOC: M LABSMTC 13:50 | PROVIDERS: ATTEND Family Medicine | DX: Z01.818 Encounter for other preprocedural examination (principal); Z11.59 Encounter for screening for other viral diseases; R35.0 Frequency of micturition | CPT/HCPCS: 81001; C9803; U0003 ==

== ENCOUNTER → 2020-04-29 | Outpatient (REF) | payer MEDICARE, OTHER ==
[2020-04-29 13:10] LABS: APPEARANCE, URINE HAZY (CLEAR); BACTERIA, URINE AUTO 2+ (NEGATIVE); BILIRUBIN, URINE AUTO NEGATIVE (NEGATIVE); BLOOD, URINE BLOOD 1+ (NEGATIVE); COLOR, URINE YELLOW (YELLOW); GLUCOSE, URINE (UA) AUTO NEGATIVE (NEGATIVE); KETONE, URINE AUTO NEGATIVE (NEGATIVE); LEUKOCYTE ESTERASE, URINE AUTO 2+ (NEGATIVE); MUCUS, URINE SMALL (NEGATIVE); NITRITE, URINE AUTO NEGATIVE (NEGATIVE); PROTEIN, URINE AUTO NEGATIVE (NEGATIVE); RBC, URINE AUTO 5 /HPF (0-3); SPECIFIC GRAVITY URINE AUTO 1.008 (1.002-1.035); SQUAMOUS EPITHELIAL CELL UR AU 1 /HPF (0-6); UROBILINOGEN, URINE AUTO 0.2 mg/dL (0.0-2.0); WBC, URINE AUTO 4 /HPF (0-3)
== END ==
LOC: M LAB REF 12:51
PROVIDERS: ATTEND Physician Assistant Medical
DX: R35.0 Frequency of micturition (principal)

== ENCOUNTER → 2020-07-15 | Outpatient (REF) | payer MEDICARE, OTHER ==
[~2020-07-15] MED LIST changes: +LEVO250T12; +MONU5.636; +PANT40TA29; -PANT40TA3
== END ==
LOC: M LAB REF 12:37
PROVIDERS: ATTEND Physician Assistant
DX: N39.0 Urinary tract infection, site not specified (principal)

== ENCOUNTER 2020-08-04 09:25 | Emergency (ER) | payer MEDICARE, OTHER ==
[~2020-08-04] VITALS: Ht 170.2 cm; Wt 105.5 kg
[~2020-08-04 09:25] MED LIST changes: -LEVO250T12; -MONU5.636
[2020-08-04] MEDS ORDERED: LEVO250T12 (09:34)
[2020-08-04] MEDS ORDERED: MONU5.636 (09:34)
[2020-08-04 10:49] LABS: APPEARANCE, URINE CLOUDY (CLEAR); BACTERIA, URINE AUTO 3+ (NEGATIVE); BILIRUBIN, URINE AUTO NEGATIVE (NEGATIVE); BLOOD, URINE BLOOD 2+ (NEGATIVE); COLOR, URINE YELLOW (YELLOW); GLUCOSE, URINE (UA) AUTO NEGATIVE (NEGATIVE); KETONE, URINE AUTO NEGATIVE (NEGATIVE); LEUKOCYTE ESTERASE, URINE AUTO 3+ (NEGATIVE); MUCUS, URINE SMALL (NEGATIVE); NITRITE, URINE AUTO NEGATIVE (NEGATIVE); PROTEIN, URINE AUTO NEGATIVE (NEGATIVE); RBC, URINE AUTO 23 /HPF (0-3); SPECIFIC GRAVITY URINE AUTO 1.016 (1.002-1.035); SQUAMOUS EPITHELIAL CELL UR AU 35 /HPF (0-6); TRANSITIONAL EPITHELIAL AUTO <1 /HPF; UROBILINOGEN, URINE AUTO 0.2 mg/dL (0.0-2.0); WBC, URINE AUTO 38 /HPF (0-3)
[2020-08-04 11:05] LABS: BASO % 0.7 % (0.0-1.0); EOS # 0.2 10^3/uL (0.0-0.5); EOS % 3.3 % (0.0-3.0); HEMATOCRIT 39.7 % (36.0-47.0); HEMOGLOBIN 12.5 g/dl (12.0-15.5); LYMPH # 1.3 10^3/uL (1.5-5.0); LYMPH % 21.5 % (24.0-44.0); MEAN CORPUSCULAR HEMOGLOBIN 28.9 pg (27.0-33.0); MEAN CORPUSCULAR HGB CONC 31.5 g/dl (32.0-36.5); MEAN CORPUSCULAR VOLUME 91.7 fl (80.0-96.0); MONO # 0.6 10^3/uL (0.0-0.8); MONO % 9.1 % (0.0-5.0); NEUTROPHILS # 3.9 10^3/uL (1.5-8.5); NEUTROPHILS % 65.1 % (36.0-66.0); PLATELET COUNT, AUTOMATED 213 10^3/uL (150-450); RED BLOOD COUNT 4.33 10^6/uL (4.00-5.40); WHITE BLOOD COUNT 6.1 10^3/uL (4.0-10.0)
--- NOTE | 2020-08-04 11:06 | REPVR ---
PROCEDURE INFORMATION: Exam: CT Abdomen And Pelvis Without Contrast Exam date and time: 08/04/2020 10:36 AM Age: 80 years old Clinical indication: Other: Dysuria, ? vaginal bleeding, back pain TECHNIQUE: Imaging protocol: Computed tomography of the abdomen and pelvis without contrast. Radiation optimization: All CT scans at this facility use at least one of these dose optimization techniques: automated exposure control; mA and/or kV adjustment per patient size (includes targeted exams where dose is matched to clinical indication); or iterative reconstruction. COMPARISON: CT ABD PELVIS W/O CONTRAST 09/21/2014 12:06 PM FINDINGS: Mediastinal space: There is a large hiatal hernia. Liver: There are low density lesions in the liver, likely cysts, but some are not fully characterized on this exam. Gallbladder and bile ducts: There is cholelithiasis. Pancreas: Normal. No ductal dilation. Spleen: There is accessory splenic tissue. There is splenomegaly. Adrenals: Normal. No mass. Kidneys and ureters: Normal. No hydronephrosis. Stomach and bowel: Unremarkable. No obstruction. No mucosal thickening. Appendix: No evidence of appendicitis. Intraperitoneal space: Unremarkable. No free air. No significant fluid collection. Vasculature: There are calcified atherosclerotic changes of the aorta. Lymph nodes: Unremarkable. No enlarged lymph nodes. Urinary bladder: Unremarkable as visualized. Reproductive: Unremarkable as visualized. Bones/joints: Unremarkable. No acute fracture. Soft tissues: Unremarkable. IMPRESSION: No acute findings are identified. Please see above report for incidental findings. Electronically signed by: Dom Pierre On 08/04/2020 11:06:20 AM
[2020-08-04 11:16] LABS: INR 1.99; PROTHROMBIN TIME 23.1 SECONDS (12.5-14.3)
[2020-08-04 11:37] LABS: CALCIUM LEVEL 8.9 MG/DL (8.8-10.2); CREATININE FOR GFR 1.41 MG/DL (0.55-1.30); GLOMERULAR FILTRATION RATE 38.2 (>32); POTASSIUM SERUM 4.6 MEQ/L (3.5-5.1)
[2020-08-04] MEDS ORDERED: NS 500 ML IV ONE (12:15)
[2020-08-04 12:49] VITALS: BP 171/73
== END 2020-08-04 12:53 | disposition home or self-care (01) ==
LOC: M ED 09:25
DX: N89.8 Other specified noninflammatory disorders of vagina (principal); E86.0 Dehydration; K44.9 Diaphragmatic hernia without obstruction or gangrene; K76.89 Other specified diseases of liver; R10.9 Unspecified abdominal pain; I48.91 Unspecified atrial fibrillation; I10 Essential (primary) hypertension; J45.909 Unspecified asthma, uncomplicated; Z88.2 Allergy status to sulfonamides; Z88.6 Allergy status to analgesic agent; Z88.1 Allergy status to other antibiotic agents; Z88.8 Allergy status to other drugs, medicaments and biological substances; Z79.01 Long term (current) use of anticoagulants; Z79.899 Other long term (current) drug therapy

== ENCOUNTER → 2020-08-17 | Outpatient (CLI) | payer MEDICARE, OTHER ==
[~2020-08-17] MED LIST changes: +LEVO250T12; +MONU5.636
== END ==
LOC: M LABSMTC 09:41
PROVIDERS: ATTEND Family Medicine
DX: Z20.828 Contact with and (suspected) exposure to other viral communicable diseases (principal)
CPT/HCPCS: C9803; U0003

== ENCOUNTER → 2020-08-31 | Outpatient (REF) | payer MEDICARE, OTHER | LOC: M SFHCWAGY 19:03 | PROVIDERS: ATTEND Nurse Practitioner Women's Health | DX: N93.9 Abnormal uterine and vaginal bleeding, unspecified (principal); N95.0 Postmenopausal bleeding | CPT/HCPCS: G0123; G0463 ==

== ENCOUNTER → 2020-09-09 | Outpatient (REF) | payer MEDICARE, OTHER ==
[2020-09-09 12:50] LABS: BASO % 0.5 % (0.0-1.0); EOS # 0.3 10^3/uL (0.0-0.5); EOS % 4.8 % (0.0-3.0); HEMATOCRIT 40.5 % (36.0-47.0); HEMOGLOBIN 12.9 g/dl (12.0-15.5); LYMPH # 1.6 10^3/uL (1.5-5.0); LYMPH % 27.9 % (24.0-44.0); MEAN CORPUSCULAR HEMOGLOBIN 29.6 pg (27.0-33.0); MEAN CORPUSCULAR HGB CONC 31.9 g/dl (32.0-36.5); MEAN CORPUSCULAR VOLUME 92.9 fl (80.0-96.0); MONO # 0.5 10^3/uL (0.0-0.8); MONO % 8.9 % (0.0-5.0); NEUTROPHILS # 3.2 10^3/uL (1.5-8.5); NEUTROPHILS % 57.7 % (36.0-66.0); PLATELET COUNT, AUTOMATED 193 10^3/uL (150-450); RED BLOOD COUNT 4.36 10^6/uL (4.00-5.40); WHITE BLOOD COUNT 5.6 10^3/uL (4.0-10.0)
[2020-09-09 13:27] LABS: ALBUMIN 3.6 GM/DL (3.2-5.2); BILIRUBIN,TOTAL 0.5 MG/DL (0.2-1.0); CALCIUM LEVEL 9.2 MG/DL (8.8-10.2); CHOLESTEROL RISK RATIO 3.271 (<5); CREATININE FOR GFR 1.31 MG/DL (0.55-1.30); GLOMERULAR FILTRATION RATE 41.6 (>32); POTASSIUM SERUM 4.6 MEQ/L (3.5-5.1); TOTAL PROTEIN 6.9 GM/DL (6.4-8.2)
[2020-09-09 13:34] LABS: TOTAL 25(OH) VITAMIN D 21.3 NG/ML (30.0-100.0)
== END ==
LOC: M LABDRWAD 12:18
PROVIDERS: ATTEND Physician Assistant
DX: E55.9 Vitamin D deficiency, unspecified (principal); F32.9 Major depressive disorder, single episode, unspecified; I10 Essential (primary) hypertension

== ENCOUNTER → 2020-09-20 | Outpatient (CLI) | payer MEDICARE, OTHER ==
--- NOTE | 2020-09-20 15:05 | REPMRS ---
Patient History The patient states she has not had a clinical breast exam in over a year. 3D TOMOSYNTHESIS WAS PERFORMED. Volpara breast density b. Digital Woman Screen Mammo: September 20, 2020 - Exam #: [id number] Bilateral CC and MLO view(s) were taken. Technologist: Kaylah Conrad, Technologist Prior study comparison: August 14, 2019, bilateral digital mammo screening bilat, performed at [facility]. August 14, 2018, bilateral digital mammo screening bilat, performed at [facility]. FINDINGS: There are scattered fibroglandular densities. There is a fairly symmetric fibroglandular pattern in both breasts. There has been no interval development of masses, areas of architectural distortion or clusters of microcalcifications typical of malignancy. There is stable postsurgical architectural distortion in the posterior right breast. No significant changes when compared with prior studies. Assessment: BI-RADS/ACR category 2 mammogram. Benign Findings. Recommendation Routine screening mammogram of both breasts in 1 year (for women over age 40). This mammogram was interpreted with the aid of an FDA-approved computer-aided dectection system. Electronically Signed By: Jim Pedraza MD 09/20/20 [id number]
== END ==
LOC: M WHC 14:20
PROVIDERS: ATTEND Family Medicine
DX: Z12.31 Encounter for screening mammogram for malignant neoplasm of breast (principal)

== ENCOUNTER → 2020-10-20 | Outpatient (CLI) | payer MEDICARE, OTHER | LOC: M LABSMTC 10:54 | PROVIDERS: ATTEND Family Medicine | DX: Z20.828 Contact with and (suspected) exposure to other viral communicable diseases (principal) ==

== ENCOUNTER → 2021-05-04 | Outpatient (REF) | payer MEDICARE, OTHER | LOC: M LAB REF 15:08 | PROVIDERS: ATTEND Family Medicine | DX: R30.0 Dysuria (principal) ==

== ENCOUNTER → 2021-05-10 | Outpatient (REF) | payer MEDICARE, OTHER ==
[2021-05-10 18:31] LABS: BASO % 0.6 % (0.0-1.0); EOS # 0.2 10^3/uL (0.0-0.5); EOS % 2.8 % (0.0-3.0); HEMATOCRIT 39.7 % (36.0-47.0); HEMOGLOBIN 12.6 g/dl (12.0-15.5); LYMPH # 1.7 10^3/uL (1.5-5.0); LYMPH % 24.3 % (24.0-44.0); MEAN CORPUSCULAR HEMOGLOBIN 29.9 pg (27.0-33.0); MEAN CORPUSCULAR HGB CONC 31.7 g/dl (32.0-36.5); MEAN CORPUSCULAR VOLUME 94.3 fl (80.0-96.0); MONO # 0.7 10^3/uL (0.0-0.8); MONO % 9.3 % (2.0-8.0); NEUTROPHILS # 4.4 10^3/uL (1.5-8.5); NEUTROPHILS % 62.6 % (36.0-66.0); PLATELET COUNT, AUTOMATED 212 10^3/uL (150-450); RED BLOOD COUNT 4.21 10^6/uL (4.00-5.40); WHITE BLOOD COUNT 7.1 10^3/uL (4.0-10.0)
[2021-05-10 18:55] LABS: CALCIUM LEVEL 9.1 MG/DL (8.8-10.2); CREATININE FOR GFR 1.75 MG/DL (0.55-1.30); GLOMERULAR FILTRATION RATE 29.8 (>32); POTASSIUM SERUM 4.1 MEQ/L (3.5-5.1)
== END ==
LOC: M LABDRWAD 16:33
PROVIDERS: ATTEND Nurse Practitioner Family
DX: M54.5 Low back pain (principal)

== ENCOUNTER 2021-05-12 18:03 | Emergency (ER) | payer MEDICARE, OTHER ==
[~2021-05-12] VITALS: Ht 170.2 cm; Wt 104.5 kg
[2021-05-12 21:03] LABS: BASO % 0.4 % (0.0-1.0); EOS # 0.2 10^3/uL (0.0-0.5); EOS % 2.7 % (0.0-3.0); HEMATOCRIT 38.1 % (36.0-47.0); HEMOGLOBIN 12.5 g/dl (12.0-15.5); LYMPH # 1.6 10^3/uL (1.5-5.0); LYMPH % 23.1 % (24.0-44.0); MEAN CORPUSCULAR HEMOGLOBIN 30.1 pg (27.0-33.0); MEAN CORPUSCULAR HGB CONC 32.8 g/dl (32.0-36.5); MEAN CORPUSCULAR VOLUME 91.8 fl (80.0-96.0); MONO # 0.7 10^3/uL (0.0-0.8); MONO % 9.4 % (2.0-8.0); NEUTROPHILS # 4.5 10^3/uL (1.5-8.5); PLATELET COUNT, AUTOMATED 183 10^3/uL (150-450); RED BLOOD COUNT 4.15 10^6/uL (4.00-5.40); WHITE BLOOD COUNT 7.1 10^3/uL (4.0-10.0)
--- NOTE | 2021-05-12 22:50 | REPVR ---
PROCEDURE INFORMATION: Exam: CT Abdomen And Pelvis Without Contrast Exam date and time: 05/12/2021 9:43 PM Age: 80 years old Clinical indication: Other: Llq pain; HX of diverticulitis TECHNIQUE: Imaging protocol: Computed tomography of the abdomen and pelvis without contrast. Radiation optimization: All CT scans at this facility use at least one of these dose optimization techniques: automated exposure control; mA and/or kV adjustment per patient size (includes targeted exams where dose is matched to clinical indication); or iterative reconstruction. COMPARISON: CT ABD PELVIS W/O CONTRAST 08/04/2020 10:33 AM FINDINGS: Mild subpleural interstitial changes versus atelectasis in the right lung base. Lung bases are otherwise clear. No pleural effusion. Moderate to large hiatal hernia, similar to previous examination. There is a fluid attenuation lesion in the posterior segment of the right lobe of the liver measuring up to 18 x 10 mm. This may represent a hepatic cyst and is similar to previous examination. 2nd small low-attenuation lesion in the anterior segment of the right lobe of the liver measuring up to 6 mm in diameter. This is too small to accurately characterize although may represent a cyst as well. No other hepatic abnormalities. The spleen, pancreas and adrenals are grossly normal. Gallbladder is normally distended. There is a small calcified gallstone in the dependent portion of the gallbladder lumen measuring up to [address] evidence of cholecystitis. Kidneys are grossly normal. No focal renal abnormalities or obstructive uropathy. Atherosclerotic changes identified within the abdominal aorta and aortic branch vessels with no evidence of aneurysmal dilatation. Small and large bowel loops are grossly normal. There is no evidence of enteric obstruction. Very mild left-sided colonic diverticular changes with no definite evidence of diverticulitis. Pelvic organs are grossly normal. No free fluid in the abdomen or pelvis. Moderate degenerative changes in the spine. Visualized osseous structures are otherwise unremarkable for age. IMPRESSION: No acute intra-abdominal or pelvic process. No evidence of enteric obstruction or diverticulitis. No evidence of obstructive uropathy. Cholelithiasis with no CT evidence of cholecystitis. Additional nonemergent findings as described above. Electronically signed by: Tray Junior On 05/12/2021 22:49:52 PM
[2021-05-12] MEDS ORDERED: FOSFOMYCIN TROMETHAMINE 3 GM POWDER PACKET (MONUROL) PO ONE (23:05)
[2021-05-13 00:35] VITALS: BP 132/70
--- NOTE | 2021-05-13 05:40 | ECGEPIP ---
[facility] - ED Test Date: 2021-05-12 Pat Name: JANET MATTSON Department: Room: - Gender: Female Bending Machine Operator: GABBY : 1940 Requested By: AUDI Baker Order Number: [id number] Reading MD: Audi Arora Measurements Intervals [place] Rate: 70 P: CA: 302 QRS: 6 QRSD: 88 T: -23 QT: 424 QTc: 457 Interpretive Statements Atrial-paced rhythm with prolonged AV conduction Nonspecific ST-T wave abnormalities Similar to tracing done 01-28-16 Electronically Signed on 05-13-2021 5:40:41 EDT by Audi Arora
== END 2021-05-13 00:38 | disposition home or self-care (01) ==
LOC: M ED 18:03
DX: N39.0 Urinary tract infection, site not specified (principal); R19.7 Diarrhea, unspecified; K92.1 Melena; R10.32 Left lower quadrant pain; K80.20 Calculus of gallbladder without cholecystitis without obstruction; I48.91 Unspecified atrial fibrillation; I10 Essential (primary) hypertension; K21.9 Gastro-esophageal reflux disease without esophagitis; F33.9 Major depressive disorder, recurrent, unspecified; Z85.3 Personal history of malignant neoplasm of breast; Z95.0 Presence of cardiac pacemaker; Z88.1 Allergy status to other antibiotic agents; Z88.2 Allergy status to sulfonamides; Z88.8 Allergy status to other drugs, medicaments and biological substances; Z79.01 Long term (current) use of anticoagulants; Z79.899 Other long term (current) drug therapy

== ENCOUNTER 2021-05-14 14:41 | Emergency (ER) | payer MEDICARE, OTHER ==
[~2021-05-14] VITALS: Ht 170.2 cm; Wt 106.0 kg
[2021-05-14 17:42] LABS: BASO % 0.5 % (0.0-1.0); EOS # 0.2 10^3/uL (0.0-0.5); EOS % 2.6 % (0.0-3.0); HEMATOCRIT 38.4 % (36.0-47.0); HEMOGLOBIN 12.5 g/dl (12.0-15.5); LYMPH # 1.5 10^3/uL (1.5-5.0); MEAN CORPUSCULAR HEMOGLOBIN 30.1 pg (27.0-33.0); MEAN CORPUSCULAR HGB CONC 32.6 g/dl (32.0-36.5); MEAN CORPUSCULAR VOLUME 92.5 fl (80.0-96.0); MONO # 0.7 10^3/uL (0.0-0.8); MONO % 10.8 % (2.0-8.0); NEUTROPHILS # 3.7 10^3/uL (1.5-8.5); NEUTROPHILS % 60.9 % (36.0-66.0); PLATELET COUNT, AUTOMATED 182 10^3/uL (150-450); RED BLOOD COUNT 4.15 10^6/uL (4.00-5.40); WHITE BLOOD COUNT 6.1 10^3/uL (4.0-10.0)
[2021-05-14 18:06] LABS: ALBUMIN 3.6 GM/DL (3.2-5.2); BILIRUBIN,DIRECT 0.2 MG/DL (0.0-0.2); BILIRUBIN,TOTAL 0.6 MG/DL (0.2-1.0); CALCIUM LEVEL 9.1 MG/DL (8.8-10.2); CREATININE FOR GFR 1.54 MG/DL (0.55-1.30); GLOMERULAR FILTRATION RATE 34.5 (>32); POTASSIUM SERUM 4.2 MEQ/L (3.5-5.1); TOTAL PROTEIN 7.1 GM/DL (6.4-8.2)
[2021-05-14 18:47] VITALS: BP 119/56
== END 2021-05-14 19:06 | disposition home or self-care (01) ==
LOC: M ED 14:41
DX: N39.0 Urinary tract infection, site not specified (principal); I48.91 Unspecified atrial fibrillation; I10 Essential (primary) hypertension; Z85.3 Personal history of malignant neoplasm of breast; Z79.899 Other long term (current) drug therapy; Z88.2 Allergy status to sulfonamides; Z88.8 Allergy status to other drugs, medicaments and biological substances; Z88.6 Allergy status to analgesic agent

== ENCOUNTER → 2021-05-27 | Outpatient (REF) | payer MEDICARE, OTHER ==
[2021-05-27 19:00] LABS: APPEARANCE, URINE HAZY (CLEAR); BACTERIA, URINE AUTO NEGATIVE (NEGATIVE); BILIRUBIN, URINE AUTO NEGATIVE (NEGATIVE); BLOOD, URINE BLOOD 1+ (NEGATIVE); COLOR, URINE YELLOW (YELLOW); GLUCOSE, URINE (UA) AUTO NEGATIVE (NEGATIVE); KETONE, URINE AUTO NEGATIVE (NEGATIVE); LEUKOCYTE ESTERASE, URINE AUTO 3+ (NEGATIVE); NITRITE, URINE AUTO NEGATIVE (NEGATIVE); PROTEIN, URINE AUTO NEGATIVE (NEGATIVE); RBC, URINE AUTO 8 /HPF (0-3); SPECIFIC GRAVITY URINE AUTO 1.023 (1.002-1.035); SQUAMOUS EPITHELIAL CELL UR AU 4 /HPF (0-6); WBC, URINE AUTO 14 /HPF (0-3)
== END ==
LOC: M SMT 18:04
PROVIDERS: ATTEND Nurse Practitioner Family
DX: R31.29 Other microscopic hematuria (principal); N39.0 Urinary tract infection, site not specified
CPT/HCPCS: 81001; 87086; 88108; G0463

== ENCOUNTER → 2021-06-24 | Outpatient (REF) | payer MEDICARE, OTHER ==
[2021-06-24 12:44] LABS: APPEARANCE, URINE CLEAR (CLEAR); BACTERIA, URINE AUTO NEGATIVE (NEGATIVE); BILIRUBIN, URINE AUTO NEGATIVE (NEGATIVE); BLOOD, URINE BLOOD 1+ (NEGATIVE); COLOR, URINE STRAW (YELLOW); GLUCOSE, URINE (UA) AUTO NEGATIVE (NEGATIVE); KETONE, URINE AUTO NEGATIVE (NEGATIVE); LEUKOCYTE ESTERASE, URINE AUTO TRACE (NEGATIVE); NITRITE, URINE AUTO NEGATIVE (NEGATIVE); PROTEIN, URINE AUTO NEGATIVE (NEGATIVE); RBC, URINE AUTO 1 /HPF (0-3); SPECIFIC GRAVITY URINE AUTO 1.009 (1.002-1.035); SQUAMOUS EPITHELIAL CELL UR AU 0 /HPF (0-6); UROBILINOGEN, URINE AUTO 0.2 mg/dL (0.0-2.0); WBC, URINE AUTO 3 /HPF (0-3)
== END ==
LOC: M SMT 12:24
PROVIDERS: ATTEND Urology
DX: N30.00 Acute cystitis without hematuria (principal)

== ENCOUNTER → 2022-03-09 | Outpatient (REF) | payer MEDICARE, OTHER ==
[~2022-03-09] MED LIST changes: -LEVO250T12; +LEVO250T3
== END ==
LOC: M LAB REF 16:52
PROVIDERS: ATTEND Nurse Practitioner Family
DX: I10 Essential (primary) hypertension (principal); N39.0 Urinary tract infection, site not specified; E55.9 Vitamin D deficiency, unspecified; I48.0 Paroxysmal atrial fibrillation

== ENCOUNTER → 2022-03-13 | Outpatient (CLI) | payer MEDICARE, OTHER ==
[2022-03-13 13:44] LABS: BASO # 0.1 10^3/uL (0.0-0.2); EOS # 0.2 10^3/uL (0.0-0.5); EOS % 3.3 % (0.0-3.0); HEMATOCRIT 37.4 % (36.0-47.0); HEMOGLOBIN 12.1 g/dl (12.0-15.5); LYMPH # 1.3 10^3/uL (1.5-5.0); MEAN CORPUSCULAR HGB CONC 32.4 g/dl (32.0-36.5); MEAN CORPUSCULAR VOLUME 92.6 fl (80.0-96.0); MONO # 0.6 10^3/uL (0.0-0.8); MONO % 10.7 % (2.0-8.0); NEUTROPHILS # 3.1 10^3/uL (1.5-8.5); NEUTROPHILS % 59.6 % (36.0-66.0); PLATELET COUNT, AUTOMATED 200 10^3/uL (150-450); RED BLOOD COUNT 4.04 10^6/uL (4.00-5.40); WHITE BLOOD COUNT 5.2 10^3/uL (4.0-10.0)
[2022-03-13 14:13] LABS: ALBUMIN 3.4 GM/DL (3.2-5.2); BILIRUBIN,TOTAL 0.5 MG/DL (0.2-1.0); CALCIUM LEVEL 9.3 MG/DL (8.8-10.2); CREATININE FOR GFR 1.09 MG/DL (0.55-1.30); GLOMERULAR FILTRATION RATE 51.3 (>32); POTASSIUM SERUM 4.7 MEQ/L (3.5-5.1); TOTAL PROTEIN 6.6 GM/DL (6.4-8.2)
[2022-03-13 14:24] LABS: TOTAL 25(OH) VITAMIN D 22.4 NG/ML (30.0-100.0)
== END ==
LOC: M ADAMS 10:44
PROVIDERS: ATTEND Nurse Practitioner Family
DX: I10 Essential (primary) hypertension (principal); I48.0 Paroxysmal atrial fibrillation; E55.9 Vitamin D deficiency, unspecified; Z79.899 Other long term (current) drug therapy

== ENCOUNTER 2022-08-01 23:03 | Emergency (ER) | payer MEDICARE, OTHER ==
[~2022-08-01] VITALS: Ht 170.2 cm; Wt 104.5 kg
[~2022-08-01 23:03] MED LIST changes: +LEVO1TAB38; -LEVO250T3
[2022-08-02 01:00] VITALS: BP 164/73
[2022-08-02] MEDS ORDERED: ACETAMINOPHEN TAB 650MG DOSE (2X325MG) PO ONE (01:10)
[2022-08-02 01:48] LABS: INR 2.31; PROTHROMBIN TIME 25.8 SECONDS (12.7-14.5)
== END 2022-08-02 03:00 | disposition home or self-care (01) ==
LOC: EDBD 23:03 → M ED 23:03
DX: S00.93XA Contusion of unspecified part of head, initial encounter (principal); S50.11XA Contusion of right forearm, initial encounter; S50.12XA Contusion of left forearm, initial encounter; W18.30XA Fall on same level, unspecified, initial encounter; I10 Essential (primary) hypertension; K21.9 Gastro-esophageal reflux disease without esophagitis; Z86.79 Personal history of other diseases of the circulatory system; Z88.2 Allergy status to sulfonamides; Z88.1 Allergy status to other antibiotic agents; Z88.5 Allergy status to narcotic agent; Z79.811 Long term (current) use of aromatase inhibitors; Z79.899 Other long term (current) drug therapy

== ENCOUNTER → 2022-12-18 | Outpatient (REF) | payer MEDICARE, OTHER | LOC: M LAB REF 16:45 | PROVIDERS: ATTEND Nurse Practitioner Family | DX: R30.0 Dysuria (principal) ==

== ENCOUNTER → 2022-12-28 | Outpatient (CLI) | payer MEDICARE, OTHER ==
[2022-12-28 14:06] LABS: INR 2.19; PROTHROMBIN TIME 24.7 SECONDS (12.5-14.5)
[2022-12-28 14:26] LABS: CALCIUM LEVEL 8.9 MG/DL (8.3-10.6); CREATININE FOR GFR 1.17 MG/DL (0.55-1.30); GLOMERULAR FILTRATION RATE 47.1 (>32); POTASSIUM SERUM 5.1 MMOL/L (3.5-5.1)
== END ==
LOC: M LABDRWAD 11:42
PROVIDERS: ATTEND Nurse Practitioner Family
DX: I48.91 Unspecified atrial fibrillation (principal); I51.89 Other ill-defined heart diseases; I50.30 Unspecified diastolic (congestive) heart failure

== ENCOUNTER → 2023-01-24 | Outpatient (CLI) | payer MEDICARE, OTHER | LOC: M PLAIMG 10:13 | PROVIDERS: ATTEND Nurse Practitioner Family | DX: M25.552 Pain in left hip (principal) ==

== ENCOUNTER → 2023-07-03 | Outpatient (REF) | payer MEDICARE, OTHER | LOC: M LAB REF 17:05 | PROVIDERS: ATTEND Registered Nurse | DX: R30.0 Dysuria (principal); M54.50 Low back pain, unspecified ==

== ENCOUNTER 2023-12-22 11:57 | Emergency (ER) | payer MEDICARE, OTHER ==
[~2023-12-22] VITALS: Ht 167.6 cm; Wt 102.7 kg
[2023-12-22 13:19] LABS: BASO % 0.5 % (0.0-1.0); EOS # 0.2 10^3/uL (0.0-0.5); EOS % 2.1 % (0.0-3.0); HEMATOCRIT 39.7 % (36.0-47.0); LYMPH % 11.4 % (24.0-44.0); MEAN CORPUSCULAR HEMOGLOBIN 30.7 pg (27.0-33.0); MEAN CORPUSCULAR HGB CONC 32.7 g/dl (32.0-36.5); MEAN CORPUSCULAR VOLUME 93.9 fl (80.0-96.0); MONO # 0.7 10^3/uL (0.0-0.8); MONO % 7.9 % (2.0-8.0); NEUTROPHILS # 6.7 10^3/uL (1.5-8.5); NEUTROPHILS % 77.5 % (36.0-66.0); PLATELET COUNT, AUTOMATED 183 10^3/uL (150-450); RED BLOOD COUNT 4.23 10^6/uL (4.00-5.40); WHITE BLOOD COUNT 8.7 10^3/uL (4.0-10.0)
[2023-12-22 13:45] LABS: RSV AMPLIFICATION NEGATIVE (NEGATIVE)
[2023-12-22 13:46] LABS: INR 2.16; PROTHROMBIN TIME 23.4 SECONDS (12.5-14.5)
[2023-12-22 13:48] LABS: CK-MB VALUE MASS < 1.0 NG/ML (<3.6)
[2023-12-22 13:50] LABS: BLOOD UREA NITROGEN 22 MG/DL (9-23); CALCIUM LEVEL 9.2 MG/DL (8.3-10.6); CARBON DIOXIDE LEVEL 30 MMOL/L (20-31); CHLORIDE LEVEL 107 MMOL/L (98-107); CREATININE FOR GFR 1.09 MG/DL (0.55-1.30); GLUCOSE, FASTING 113 MG/DL (74-106); MAGNESIUM LEVEL 1.8 MG/DL (1.8-2.4); POTASSIUM SERUM 5.3 MMOL/L (3.5-5.1); SODIUM LEVEL 141 MMOL/L (136-145)
[2023-12-22 13:52] LABS: FREE T4 0.99 NG/DL (0.89-1.76); THYROID STIMULATING HORMONE 3.397 uIU/ML (0.55-4.78)
[2023-12-22 13:54] LABS: CPK CREATINE PHOSPHOKINASE 56 U/L (34-145); MB/CK RELATIVE INDEX 1.78 (< OR =4)
[2023-12-22 14:45] LABS: CK-MB VALUE MASS < 1.0 NG/ML (<3.6)
[2023-12-22 14:49] LABS: CPK CREATINE PHOSPHOKINASE 52 U/L (34-145); MB/CK RELATIVE INDEX 1.92 (< OR =4)
[2023-12-22] MEDS ORDERED: ACETAMINOPHEN TAB 650MG DOSE (2X325MG) PO ONE (15:25)
[2023-12-22] MEDS: NORCO, ANEXSIA 5/325MG TABLET (HYDROcodone/ACETAMINOPHEN) PO ONE (16:01)
[2023-12-22] MEDS ORDERED: HYDR-3713 PO (17:28)
[2023-12-22] MEDS: NORCO 5/325MG TABLET (HOME DOSE PACK) PO ONE (18:05)
[2023-12-22 18:13] VITALS: BP 156/70; TEMP 98.6; O2SAT 96
== END 2023-12-22 18:21 | disposition home or self-care (01) ==
LOC: M ED 11:57 → EDBD 11:57 → M ED 18:21
DX: S22.31XA Fracture of one rib, right side, initial encounter for closed fracture (principal); R55 Syncope and collapse; I45.89 Other specified conduction disorders; I10 Essential (primary) hypertension; F41.9 Anxiety disorder, unspecified; C50.111 Malignant neoplasm of central portion of right female breast; Z86.79 Personal history of other diseases of the circulatory system; Z88.1 Allergy status to other antibiotic agents; Z88.2 Allergy status to sulfonamides; Z88.5 Allergy status to narcotic agent; Z88.8 Allergy status to other drugs, medicaments and biological substances

== ENCOUNTER 2024-03-20 11:53 | Emergency (ER) | payer MEDICARE, OTHER ==
[~2024-03-20] VITALS: Ht 167.6 cm; Wt 100.5 kg
[~2024-03-20 11:53] MED LIST changes: +HYDR-3713 PO
[2024-03-20 12:41] LABS: BASO % 0.6 % (0.0-1.0); EOS # 0.1 10^3/uL (0.0-0.5); EOS % 1.7 % (0.0-3.0); HEMATOCRIT 38.1 % (36.0-47.0); HEMOGLOBIN 12.6 g/dl (12.0-15.5); LYMPH # 1.1 10^3/uL (1.5-5.0); LYMPH % 22.3 % (24.0-44.0); MEAN CORPUSCULAR HEMOGLOBIN 30.6 pg (27.0-33.0); MEAN CORPUSCULAR HGB CONC 33.1 g/dl (32.0-36.5); MEAN CORPUSCULAR VOLUME 92.5 fl (80.0-96.0); MONO # 0.4 10^3/uL (0.0-0.8); MONO % 8.8 % (2.0-8.0); NEUTROPHILS # 3.2 10^3/uL (1.5-8.5); NEUTROPHILS % 66.4 % (36.0-66.0); PLATELET COUNT, AUTOMATED 191 10^3/uL (150-450); RED BLOOD COUNT 4.12 10^6/uL (4.00-5.40); WHITE BLOOD COUNT 4.8 10^3/uL (4.0-10.0)
[2024-03-20 13:04] LABS: INR 2.17; PROTHROMBIN TIME 23.4 SECONDS (12.5-14.5)
[2024-03-20 13:06] LABS: CALCIUM LEVEL 9.2 MG/DL (8.3-10.6); CREATININE FOR GFR 1.04 MG/DL (0.55-1.30); GLOMERULAR FILTRATION RATE 53.9 (>32); POTASSIUM SERUM 4.9 MMOL/L (3.5-5.1)
[2024-03-20 16:04] LABS: HEMATOCRIT 38.8 % (36.0-47.0); HEMOGLOBIN 12.8 g/dl (12.0-15.5)
[2024-03-20] MEDS: ALPRAZolam 0.25 MG TAB PO ONE (16:23)
[2024-03-20 18:10] VITALS: BP 188/84
[2024-03-20] MEDS: METOPROLOL SUCC (TopROL XL) 50MG **XL** TAB PO STA (18:10)
[2024-03-20 18:38] VITALS: BP 172/84; TEMP 96.9; O2SAT 97
== END 2024-03-20 18:40 | disposition home or self-care (01) ==
LOC: M ED 11:53
DX: K92.1 Melena (principal); K44.9 Diaphragmatic hernia without obstruction or gangrene; K76.89 Other specified diseases of liver; K57.90 Diverticulosis of intestine, part unspecified, without perforation or abscess without bleeding; C50.919 Malignant neoplasm of unspecified site of unspecified female breast; F32.A Depression, unspecified; F41.9 Anxiety disorder, unspecified; Z88.1 Allergy status to other antibiotic agents; Z88.2 Allergy status to sulfonamides; Z88.5 Allergy status to narcotic agent; Z88.8 Allergy status to other drugs, medicaments and biological substances; Z95.0 Presence of cardiac pacemaker; Z79.01 Long term (current) use of anticoagulants; Z79.1 Long term (current) use of non-steroidal anti-inflammatories (NSAID); Z79.899 Other long term (current) drug therapy; Z86.79 Personal history of other diseases of the circulatory system

== ENCOUNTER → 2024-07-24 | Outpatient (REF) | payer MEDICARE, OTHER ==
[~2024-07-24] MED LIST changes: +D3 S20002 PO; +ONDA-282 SL
== END ==
LOC: M SFHCDERM 17:31
PROVIDERS: ATTEND Physician Assistant
DX: L57.0 Actinic keratosis (principal)

== ENCOUNTER 2024-07-28 13:45 | Inpatient (IN) | payer MEDICARE, OTHER ==
[~2024-07-28] VITALS: Ht 167.6 cm; Wt 111.6 kg
[2024-07-28] VITALS (8 sets, daily range): BP systolic 148–180; BP diastolic 66–90; TEMP 97.1–98; O2SAT 96–98
[~2024-07-28 13:45] MED LIST changes: -D3 S20002 PO; -ONDA-282 SL
[2024-07-28] MEDS: ACETAMINOPHEN 500 MG TAB PO ONE (15:45)
[2024-07-28] MEDS: METOPROLOL TART 50 MG TAB PO ONE (15:45)
[2024-07-28] MEDS: KETOROLAC 30 MG/ML 1ML VIAL IV ONE (16:00)
[2024-07-28] MEDS: HYDROMORPHONE HCL 0.5 MG/ 0.5 ML SYRINGE IV ONE (16:00)
[2024-07-28 16:11] LABS: HEMATOCRIT 33.8 % (36.0-47.0); HEMOGLOBIN 10.9 g/dl (12.0-15.5); MEAN CORPUSCULAR HEMOGLOBIN 29.8 pg (27.0-33.0); MEAN CORPUSCULAR HGB CONC 32.2 g/dl (32.0-36.5); MEAN CORPUSCULAR VOLUME 92.3 fl (80.0-96.0); PLATELET COUNT, AUTOMATED 184 10^3/uL (150-450); RED BLOOD COUNT 3.66 10^6/uL (4.00-5.40); WHITE BLOOD COUNT 7.5 10^3/uL (4.0-10.0)
[2024-07-28 16:31] LABS: INR 2.03; PARTIAL THROMBOPLASTIN TIME 40.9 SECONDS (24.8-34.2); PROTHROMBIN TIME 22.2 SECONDS (12.5-14.5)
[2024-07-28 16:34] LABS: ALBUMIN 2.9 G/DL (3.2-5.2); ALKALINE PHOSPHATASE 76 U/L (46-116); ALT/SGPT 16 U/L (7.0-40); AST/SGOT 25 U/L (<34); BILIRUBIN,TOTAL 0.7 MG/DL (0.3-1.2); BLOOD UREA NITROGEN 18 MG/DL (9-23); CARBON DIOXIDE LEVEL 26 MMOL/L (20-31); CHLORIDE LEVEL 105 MMOL/L (98-107); CREATININE FOR GFR 0.92 MG/DL (0.55-1.30); GLOMERULAR FILTRATION RATE > 60.0 (>32); GLUCOSE, FASTING 105 MG/DL (74-106); POTASSIUM SERUM 4.4 MMOL/L (3.5-5.1); SODIUM LEVEL 137 MMOL/L (136-145); TOTAL PROTEIN 6.1 G/DL (5.7-8.2)
[2024-07-28] MEDS ORDERED: ONDA-282 SL (17:47)
[2024-07-28] MEDS ORDERED: D3 S20002 PO (17:47)
[2024-07-28] MEDS ORDERED: HYDR-3713 PO (17:47)
[2024-07-28] MEDS: METOPROLOL 5 MG/5 ML VIAL IV SCH (17:59)
[2024-07-28] MEDS: ACETAMINOPHEN 500 MG TAB PO SCH (18:00)
[2024-07-28] MEDS ORDERED: NALOXONE INJ 0.4MG/1ML VIAL IV PRN (18:05)
[2024-07-28] MEDS ORDERED: PILL CUTTER 1 EACH XX PRN (18:15)
[2024-07-28] MEDS ORDERED: WARF-18 PO (18:50)
[2024-07-28] MEDS ORDERED: HOME MED LIST COMPLETE! XX SCH (18:55)
[2024-07-28] MEDS: ALPRAZolam 0.5 MG TAB PO ONE (19:10)
[2024-07-28] MEDS: **hydrALAZINE HCL** 25 MG TAB PO SCH (19:11)
[2024-07-28] MEDS ORDERED: ALPRAZolam 0.25 MG TAB PO SCH (21:00)
[2024-07-28] MEDS: ALPRAZolam 0.5 MG TAB PO PRN (21:59)
[2024-07-28] MEDS: MORPHINE 2 MG/ML 1ML VIAL IV PRN (22:08)
[2024-07-28 23:32] LABS: INR 1.76
[2024-07-29] VITALS (9 sets, daily range): BP systolic 126–174; BP diastolic 58–74; TEMP 97–98.3; O2SAT 93–97
[2024-07-29] MEDS: **hydrALAZINE** 10 MG TAB PO SCH ×2 (06:42→12:00)
[2024-07-29 07:31] LABS: HEMATOCRIT 28.8 % (36.0-47.0); HEMOGLOBIN 9.5 g/dl (12.0-15.5); MEAN CORPUSCULAR HEMOGLOBIN 30.3 pg (27.0-33.0); MEAN CORPUSCULAR VOLUME 91.7 fl (80.0-96.0); PLATELET COUNT, AUTOMATED 162 10^3/uL (150-450); RED BLOOD COUNT 3.14 10^6/uL (4.00-5.40); WHITE BLOOD COUNT 5.1 10^3/uL (4.0-10.0)
[2024-07-29 07:48] LABS: INR 1.64; PROTHROMBIN TIME 18.9 SECONDS (12.5-14.5)
[2024-07-29 07:56] LABS: BLOOD UREA NITROGEN 15 MG/DL (9-23); CALCIUM LEVEL 8.6 MG/DL (8.3-10.6); CARBON DIOXIDE LEVEL 30 MMOL/L (20-31); CHLORIDE LEVEL 108 MMOL/L (98-107); CREATININE FOR GFR 0.93 MG/DL (0.55-1.30); GLOMERULAR FILTRATION RATE > 60.0 (>32); GLUCOSE, FASTING 91 MG/DL (74-106); SODIUM LEVEL 139 MMOL/L (136-145)
[2024-07-29] MEDS: hydrALAZINE 20MG/ML 1ML VIAL IV STA (08:04)
[2024-07-29] MEDS: METOPROLOL SUCC (TopROL XL) 50MG **XL** TAB PO ONE (08:05)
[2024-07-29] MEDS: ACETAMINOPHEN 500 MG TAB PO ONE (08:15)
[2024-07-29] MEDS ORDERED: METOPROLOL SUCC (TopROL XL) 50MG **XL** TAB PO SCH (09:00)
[2024-07-29] MEDS: oxyCODONE 5MG TAB PO PRN (10:23)
[2024-07-29] MEDS: VITAMIN D 1,000 INTERNATIONAL UNITS TABLET PO SCH (10:24)
[2024-07-29] MEDS: ESCITALOPRAM OXALATE 10 MG TAB (LEXAPRO) PO SCH (10:24)
[2024-07-29 13:01] LABS: INR 1.66; PROTHROMBIN TIME 19.1 SECONDS (12.5-14.5)
[2024-07-30] VITALS (22 sets, daily range): BP systolic 130–195; BP diastolic 56–85; TEMP 96.5–98.4; O2SAT 90–97
[2024-07-30 05:33] LABS: HEMATOCRIT 26.8 % (36.0-47.0); HEMOGLOBIN 8.7 g/dl (12.0-15.5); MEAN CORPUSCULAR HEMOGLOBIN 29.9 pg (27.0-33.0); MEAN CORPUSCULAR HGB CONC 32.5 g/dl (32.0-36.5); MEAN CORPUSCULAR VOLUME 92.1 fl (80.0-96.0); PLATELET COUNT, AUTOMATED 191 10^3/uL (150-450); RED BLOOD COUNT 2.91 10^6/uL (4.00-5.40); WHITE BLOOD COUNT 6.3 10^3/uL (4.0-10.0)
[2024-07-30 05:42] LABS: INR 1.55; PROTHROMBIN TIME 18.1 SECONDS (12.5-14.5)
[2024-07-30 06:00] LABS: CALCIUM LEVEL 8.6 MG/DL (8.3-10.6); CREATININE FOR GFR 0.97 MG/DL (0.55-1.30); GLOMERULAR FILTRATION RATE 58.2 (>32); POTASSIUM SERUM 3.9 MMOL/L (3.5-5.1)
[2024-07-30] MEDS: METOPROLOL SUCC (TopROL XL) 50MG **XL** TAB PO ONE (08:40)
[2024-07-30] MEDS ORDERED: METOPROLOL SUCC *XL* 25MG TAB (TopROL *XL*) PO SCH (09:00)
[2024-07-30] MEDS ORDERED: **hydrALAZINE HCL** 25 MG TAB PO ONE (10:00)
[2024-07-30] MEDS: hydrALAZINE 20MG/ML 1ML VIAL IV STA (10:14)
[2024-07-30 10:38] LABS: INR 1.5; PROTHROMBIN TIME 17.6 SECONDS (12.5-14.5)
[2024-07-30] MEDS: METOPROLOL SUCC *XL* 25MG TAB (TopROL *XL*) PO ONE (10:59)
[2024-07-30] MEDS ORDERED: **hydrALAZINE** 50 MG TAB PO ONE (12:00)
[2024-07-30] MEDS ORDERED: fentaNYL 100 MCG/2 ML INJECTION As Ordered ONE (13:34)
[2024-07-30] MEDS ORDERED: LIDOCAINE 2% 100MG/5ML SDV (FOR ANES.) As Ordered ONE (13:35)
[2024-07-30] MEDS: ceFAZolin 2 GM/D5W 50 ML IV BAG As Ordered ONE (14:30)
[2024-07-30] MEDS ORDERED: propofoL 200 MG/20 ML VIAL As Ordered ONE (14:42)
[2024-07-30] MEDS ORDERED: ONDANSETRON 4MG 2ML VIAL As Ordered ONE (14:43)
[2024-07-30] MEDS ORDERED: ONDANSETRON 4MG 2ML VIAL IV PRN (16:30)
[2024-07-30] MEDS: ONDANSETRON 4MG 2ML VIAL IV PRN (17:20)
[2024-07-30] MEDS: oxyCODONE 5MG TAB PO PRN (17:20)
[2024-07-30] MEDS: fentaNYL 100 MCG/2 ML INJECTION IV PRN (17:21)
[2024-07-30] MEDS: **hydrALAZINE** 50 MG TAB PO SCH (18:59)
[2024-07-30] MEDS: ceFAZolin SOD 2 GM in IV 1 EA IV SCH (21:15)
[2024-07-31 06:57] LABS: HEMATOCRIT 29.1 % (36.0-47.0); HEMOGLOBIN 9.2 g/dl (12.0-15.5); MEAN CORPUSCULAR HEMOGLOBIN 29.5 pg (27.0-33.0); MEAN CORPUSCULAR HGB CONC 31.6 g/dl (32.0-36.5); MEAN CORPUSCULAR VOLUME 93.3 fl (80.0-96.0); PLATELET COUNT, AUTOMATED 210 10^3/uL (150-450); RED BLOOD COUNT 3.12 10^6/uL (4.00-5.40); WHITE BLOOD COUNT 10.5 10^3/uL (4.0-10.0)
[2024-07-31 07:08] LABS: INR 1.38; PROTHROMBIN TIME 16.5 SECONDS (12.5-14.5)
[2024-07-31 07:21] LABS: CALCIUM LEVEL 8.3 MG/DL (8.3-10.6); CREATININE FOR GFR 1.1 MG/DL (0.55-1.30); GLOMERULAR FILTRATION RATE 50.4 (>32); POTASSIUM SERUM 3.9 MMOL/L (3.5-5.1)
[2024-07-31 07:51] VITALS: BP 113/55; TEMP 97.6; O2SAT 93
[2024-07-31] MEDS: METOPROLOL SUCC *XL* 25MG TAB (TopROL *XL*) PO SCH (09:00)
[2024-07-31] MEDS ORDERED: ACETAMINOPHEN *IV* 1,000 MG in IV 1 EA IV ONE (11:45)
[2024-07-31 11:53] VITALS: BP 108/51; TEMP 98.3; O2SAT 93
[2024-07-31] MEDS: KETOROLAC 30 MG/ML 1ML VIAL IV ONE (12:08)
[2024-07-31] MEDS: HYDROMORPHONE HCL 0.5 MG/ 0.5 ML SYRINGE IV ONE (12:08)
[2024-07-31] MEDS: oxyCODONE 5MG TAB PO ONE (13:16)
[2024-07-31 15:42] VITALS: BP 100/42; TEMP 99; O2SAT 93
[2024-07-31 19:49] VITALS: BP 104/52; TEMP 97.9; O2SAT 96
[2024-07-31] MEDS: PANTOPRAZOLE 40MG TAB (PROTONIX) PO ONE (21:23)
[2024-08-01] VITALS (10 sets, daily range): BP systolic 113–162; BP diastolic 59–77; TEMP 97–98.9; O2SAT 95–100
[2024-08-01 06:27] LABS: HEMATOCRIT 26.4 % (36.0-47.0); HEMOGLOBIN 8.3 g/dl (12.0-15.5); MEAN CORPUSCULAR HEMOGLOBIN 29.7 pg (27.0-33.0); MEAN CORPUSCULAR HGB CONC 31.4 g/dl (32.0-36.5); MEAN CORPUSCULAR VOLUME 94.6 fl (80.0-96.0); PLATELET COUNT, AUTOMATED 180 10^3/uL (150-450); RED BLOOD COUNT 2.79 10^6/uL (4.00-5.40); WHITE BLOOD COUNT 6.9 10^3/uL (4.0-10.0)
[2024-08-01 06:39] LABS: INR 1.55; PROTHROMBIN TIME 18.1 SECONDS (12.5-14.5)
[2024-08-01 06:49] LABS: CALCIUM LEVEL 7.9 MG/DL (8.3-10.6); CREATININE FOR GFR 1.31 MG/DL (0.55-1.30); GLOMERULAR FILTRATION RATE 41.2 (>32)
[2024-08-01] MEDS ORDERED: NS 1,000 ML IV SCH (08:00)
[2024-08-01] MEDS ORDERED: ROCURONIUM BROMIDE 50MG/5ML VIAL As Ordered ONE (10:08)
[2024-08-01] MEDS ORDERED: PHENYLephrine 500MCG 5ML (100MCG/ML) SYRINGE As Ordered ONE (10:50)
[2024-08-01] MEDS ORDERED: SUGAMMADEX SODIUM 500 MG/5 ML VIAL (BRIDION) As Ordered ONE (11:05)
[2024-08-01] MEDS: BACITRACIN OINTMENT 30GM TUBE As Ordered ONE (11:13)
[2024-08-01] MEDS: TRANEXAMIC ACID 100 MG/ML 10ML VIAL As Ordered ONE (11:14)
[2024-08-01] MEDS: VANCOMYCIN 1000MG/20ML VIAL As Ordered ONE (12:30)
[2024-08-01] MEDS ORDERED: ONDANSETRON 4MG 2ML VIAL IV PRN (13:25)
[2024-08-01] MEDS ORDERED: fentaNYL 100 MCG/2 ML INJECTION IV PRN (13:25)
[2024-08-01] MEDS: LR 1,000 ML IV SCH (13:25)
[2024-08-01] MEDS: HYDROMORPHONE HCL 0.5 MG/ 0.5 ML SYRINGE IV PRN (13:28)
[2024-08-01] MEDS: oxyCODONE 5MG TAB PO PRN (13:50)
[2024-08-01] MEDS: NS 1,000 ML IV SCH (14:00)
[2024-08-01] MEDS: HYDROMORPHONE HCL 0.5 MG/ 0.5 ML SYRINGE IV ONE (16:41)
[2024-08-01 17:14] LABS: INR 1.31; PROTHROMBIN TIME 15.9 SECONDS (12.5-14.5)
[2024-08-01] MEDS: oxyCODONE 5MG TAB PO ONE (18:41)
[2024-08-01] MEDS ORDERED: MIRALAX *UNIT DOSE* 17GM PACKET PO PRN (23:55)
[2024-08-02] MEDS: SENNA 8.6 MG TAB (SENOKOT) PO PRN (00:32)
[2024-08-02] MEDS: CALCIUM CARBONATE 500 MG CHEW U/D PO PRN (00:32)
[2024-08-02 04:00] VITALS: BP 127/65; TEMP 97.3; O2SAT 99
[2024-08-02 07:04] LABS: HEMATOCRIT 24.4 % (36.0-47.0); HEMOGLOBIN 7.7 g/dl (12.0-15.5); MEAN CORPUSCULAR HEMOGLOBIN 29.7 pg (27.0-33.0); MEAN CORPUSCULAR HGB CONC 31.6 g/dl (32.0-36.5); MEAN CORPUSCULAR VOLUME 94.2 fl (80.0-96.0); PLATELET COUNT, AUTOMATED 206 10^3/uL (150-450); RED BLOOD COUNT 2.59 10^6/uL (4.00-5.40); WHITE BLOOD COUNT 6.8 10^3/uL (4.0-10.0)
[2024-08-02 07:11] LABS: INR 1.32
[2024-08-02 07:28] LABS: CALCIUM LEVEL 8.3 MG/DL (8.3-10.6); CREATININE FOR GFR 1.06 MG/DL (0.55-1.30); GLOMERULAR FILTRATION RATE 52.6 (>32); POTASSIUM SERUM 4.2 MMOL/L (3.5-5.1)
[2024-08-02 12:05] VITALS: BP 114/75; TEMP 97.7; O2SAT 93
[2024-08-02 19:50] VITALS: BP 122/47; TEMP 97.5; O2SAT 94
[2024-08-03] VITALS (10 sets, daily range): BP systolic 108–157; BP diastolic 51–68; TEMP 97–97.5; O2SAT 91–97
[2024-08-03 06:57] LABS: HEMATOCRIT 23.2 % (36.0-47.0); HEMOGLOBIN 7.3 g/dl (12.0-15.5); MEAN CORPUSCULAR HEMOGLOBIN 29.8 pg (27.0-33.0); MEAN CORPUSCULAR HGB CONC 31.5 g/dl (32.0-36.5); MEAN CORPUSCULAR VOLUME 94.7 fl (80.0-96.0); PLATELET COUNT, AUTOMATED 214 10^3/uL (150-450); RED BLOOD COUNT 2.45 10^6/uL (4.00-5.40); WHITE BLOOD COUNT 6.5 10^3/uL (4.0-10.0)
[2024-08-03 07:12] LABS: INR 1.3; PROTHROMBIN TIME 15.8 SECONDS (12.5-14.5)
[2024-08-03 07:24] LABS: BLOOD UREA NITROGEN 27 MG/DL (9-23); CALCIUM LEVEL 8.1 MG/DL (8.3-10.6); CARBON DIOXIDE LEVEL 27 MMOL/L (20-31); CHLORIDE LEVEL 110 MMOL/L (98-107); GLOMERULAR FILTRATION RATE > 60.0 (>32); GLUCOSE, FASTING 103 MG/DL (74-106); POTASSIUM SERUM 4.1 MMOL/L (3.5-5.1); SODIUM LEVEL 140 MMOL/L (136-145)
[2024-08-03] MEDS ORDERED: oxyCODONE 5MG TAB PO PRN (09:10)
[2024-08-03] MEDS ORDERED: MIRALAX *UNIT DOSE* 17GM PACKET PO PRN (09:15)
[2024-08-03] MEDS ORDERED: LACTULOSE 20GM/30ML SYRUP UDC PO PRN (09:15)
[2024-08-03] MEDS ORDERED: IBUPROFEN 400MG TAB PO PRN (09:15)
[2024-08-03] MEDS: SENOKOT S TAB PO SCH (09:34)
[2024-08-03] MEDS: oxyCODONE 5MG TAB PO ONE (10:11)
[2024-08-03 16:52] LABS: HEMATOCRIT 29.4 % (36.0-47.0); HEMOGLOBIN 9.4 g/dl (12.0-15.5)
[2024-08-03] MEDS: METOPROLOL TART 25 MG TABLET PO ONE (17:24)
[2024-08-03] MEDS: DIGOXIN INJ 0.5 MG/2 ML AMP IV STA (17:25)
[2024-08-03] MEDS ORDERED: METOPROLOL 5 MG/5 ML VIAL As Ordered ONE (17:29)
[2024-08-03] MEDS: MIDODRINE 5 MG TAB PO ONE (17:33)
[2024-08-03] MEDS: METOPROLOL 5 MG/5 ML VIAL IV SCH (17:41)
[2024-08-03] MEDS ORDERED: dilTIAZem 25MG/5ML VIAL As Ordered ONE (17:42)
[2024-08-03] MEDS: dilTIAZem 25MG/5ML VIAL IV STA (18:16)
[2024-08-03] MEDS: diltiaZEM 125 MG in NS 100 ML IV SCH (20:22)
[2024-08-04] VITALS (8 sets, daily range): BP systolic 126–175; BP diastolic 62–84; TEMP 96.6–97.7; O2SAT 92–99
[2024-08-04] MEDS ORDERED: METOPROLOL TART 25 MG TABLET PO SCH
[2024-08-04] MEDS ORDERED: DIGOXIN INJ 0.5 MG/2 ML AMP IV ONE
[2024-08-04 00:10] LABS: HEMATOCRIT 27.3 % (36.0-47.0)
[2024-08-04 07:34] LABS: HEMATOCRIT 25.7 % (36.0-47.0); HEMOGLOBIN 8.4 g/dl (12.0-15.5); MEAN CORPUSCULAR HEMOGLOBIN 30.3 pg (27.0-33.0); MEAN CORPUSCULAR HGB CONC 32.7 g/dl (32.0-36.5); MEAN CORPUSCULAR VOLUME 92.8 fl (80.0-96.0); PLATELET COUNT, AUTOMATED 228 10^3/uL (150-450); RED BLOOD COUNT 2.77 10^6/uL (4.00-5.40); WHITE BLOOD COUNT 6.4 10^3/uL (4.0-10.0)
[2024-08-04 07:45] LABS: INR 1.2; PROTHROMBIN TIME 14.8 SECONDS (12.5-14.5)
[2024-08-04 08:07] LABS: BLOOD UREA NITROGEN 21 MG/DL (9-23); CALCIUM LEVEL 7.8 MG/DL (8.3-10.6); CARBON DIOXIDE LEVEL 26 MMOL/L (20-31); CHLORIDE LEVEL 112 MMOL/L (98-107); CREATININE FOR GFR 0.79 MG/DL (0.55-1.30); DIGOXIN LEVEL 0.5 NG/ML (0.8-2.0); GLOMERULAR FILTRATION RATE > 60.0 (>32); GLUCOSE, FASTING 100 MG/DL (74-106); POTASSIUM SERUM 4.4 MMOL/L (3.5-5.1); SODIUM LEVEL 143 MMOL/L (136-145)
[2024-08-04] MEDS: DIGOXIN INJ 0.5 MG/2 ML AMP IV STA (09:28)
[2024-08-04] MEDS: METOPROLOL TART 50 MG TAB PO ONE (09:40)
[2024-08-04] MEDS: METOPROLOL TART 50 MG TAB PO SCH (11:46)
[2024-08-05] VITALS (7 sets, daily range): BP systolic 124–188; BP diastolic 58–80; TEMP 97.1–98.3; O2SAT 92–93
[2024-08-05 12:05] LABS: BASO % 0.4 % (0.0-1.0); EOS # 0.2 10^3/uL (0.0-0.5); EOS % 2.7 % (0.0-3.0); HEMATOCRIT 29.2 % (36.0-47.0); HEMOGLOBIN 9.7 g/dl (12.0-15.5); LYMPH # 0.9 10^3/uL (1.5-5.0); LYMPH % 11.1 % (24.0-44.0); MEAN CORPUSCULAR HEMOGLOBIN 29.9 pg (27.0-33.0); MEAN CORPUSCULAR HGB CONC 33.2 g/dl (32.0-36.5); MEAN CORPUSCULAR VOLUME 90.1 fl (80.0-96.0); MONO # 0.9 10^3/uL (0.0-0.8); MONO % 10.3 % (2.0-8.0); NEUTROPHILS # 6.1 10^3/uL (1.5-8.5); NEUTROPHILS % 73.8 % (36.0-66.0); PLATELET COUNT, AUTOMATED 251 10^3/uL (150-450); RED BLOOD COUNT 3.24 10^6/uL (4.00-5.40); WHITE BLOOD COUNT 8.3 10^3/uL (4.0-10.0)
[2024-08-05 12:14] LABS: INR 1.13; PROTHROMBIN TIME 14.2 SECONDS (12.5-14.5)
[2024-08-05] MEDS: PANTOPRAZOLE 40MG TAB (PROTONIX) PO SCH (12:22)
[2024-08-05 12:34] LABS: BLOOD UREA NITROGEN 23 MG/DL (9-23); CALCIUM LEVEL 8.5 MG/DL (8.3-10.6); CARBON DIOXIDE LEVEL 25 MMOL/L (20-31); CHLORIDE LEVEL 108 MMOL/L (98-107); GLOMERULAR FILTRATION RATE > 60.0 (>32); GLUCOSE, FASTING 107 MG/DL (74-106); POTASSIUM SERUM 4.2 MMOL/L (3.5-5.1); SODIUM LEVEL 138 MMOL/L (136-145)
[2024-08-05] MEDS ORDERED: ACET-683 PO (14:07)
[2024-08-05] MEDS ORDERED: CALC200T15 PO (14:07)
[2024-08-05] MEDS ORDERED: ALPR0.5T3 PO (14:07)
[2024-08-05] MEDS ORDERED: LEXA1TAB PO (14:07)
[2024-08-05] MEDS ORDERED: LOPR1TAB6 PO (14:07)
[2024-08-05] MEDS ORDERED: VITAD1000T PO (14:07)
== END 2024-08-05 16:00 | DRG 511 ==
LOC: M PCU 14:21 → M MS5PR 08-01 23:00 → M PCU 08-03 18:05
PROVIDERS: ADMIT Internal Medicine Nephrology; ATTEND Hospitalist
PROC: 30233K1 Transfusion of Nonautologous Frozen Plasma into Peripheral Vein, Percutaneous Approach (ICD-10-PCS; 2024-07-28)
PROC: 0PRJ0JZ Replacement of Left Radius with Synthetic Substitute, Open Approach (ICD-10-PCS; principal; 2024-07-30 13:30)
PROC: 0PRJ0JZ Replacement of Left Radius with Synthetic Substitute, Open Approach (ICD-10-PCS; 2024-08-01)
PROC: 30233N1 Transfusion of Nonautologous Red Blood Cells into Peripheral Vein, Percutaneous Approach (ICD-10-PCS; 2024-08-03)
DX: S52.125A Nondisplaced fracture of head of left radius, initial encounter for closed fracture (principal); I48.20 Chronic atrial fibrillation, unspecified; N17.9 Acute kidney failure, unspecified; D62 Acute posthemorrhagic anemia; I10 Essential (primary) hypertension; J45.909 Unspecified asthma, uncomplicated; I16.0 Hypertensive urgency; E78.2 Mixed hyperlipidemia; S52.135A Nondisplaced fracture of neck of left radius, initial encounter for closed fracture; K57.90 Diverticulosis of intestine, part unspecified, without perforation or abscess without bleeding; E78.5 Hyperlipidemia, unspecified; E55.9 Vitamin D deficiency, unspecified; K44.9 Diaphragmatic hernia without obstruction or gangrene; F41.9 Anxiety disorder, unspecified; F32.A Depression, unspecified; K29.60 Other gastritis without bleeding; Z85.3 Personal history of malignant neoplasm of breast; Z79.01 Long term (current) use of anticoagulants; K76.89 Other specified diseases of liver; W18.30XA Fall on same level, unspecified, initial encounter; Y92.009 Unspecified place in unspecified non-institutional (private) residence as the place of occurrence of the external cause; Z88.8 Allergy status to other drugs, medicaments and biological substances; Z88.2 Allergy status to sulfonamides; Z88.5 Allergy status to narcotic agent; Z79.899 Other long term (current) drug therapy; Z66 Do not resuscitate

== ENCOUNTER 2024-08-05 15:00 | Inpatient (IN) | payer MEDICARE, OTHER ==
[~2024-08-05] VITALS: Ht 167.6 cm; Wt 97.2 kg
[~2024-08-05 15:00] MED LIST changes: +ALPR0.5T3 PO; +CALC200T15 PO; +D3 S20002 PO; +LOPR1TAB6 PO; +ONDA-282 SL; +VITAD1000T PO
[2024-08-05] MEDS ORDERED: MOM 30ML SUSPENSION UDC PO PRN (15:45)
[2024-08-05] MEDS ORDERED: ONDANSETRON 4MG TAB PO PRN (15:45)
[2024-08-05] MEDS ORDERED: SIMETHICONE 80MG CHEW TAB PO PRN (15:45)
[2024-08-05] MEDS ORDERED: MAALOX 30 ML SUSP *UDC PO PRN (15:45)
[2024-08-05] MEDS ORDERED: BISACODYL 10MG SUPP PR PRN (15:45)
[2024-08-05] MEDS ORDERED: MIRALAX *UNIT DOSE* 17GM PACKET PO PRN (15:45)
[2024-08-05] MEDS ORDERED: traMADol 50 MG TAB PO PRN (15:55)
[2024-08-05 16:15] VITALS: BP 188/76; TEMP 97.7; O2SAT 91
[2024-08-05] MEDS: METOPROLOL TART 50 MG TAB PO SCH (18:04)
[2024-08-05] MEDS: ACETAMINOPHEN 500 MG TAB PO SCH (18:05)
[2024-08-05 20:00] VITALS: BP 150/68; TEMP 97.7; O2SAT 91
[2024-08-05] MEDS: BISACODYL 5MG TAB PO PRN (21:20)
[2024-08-05] MEDS: PANTOPRAZOLE 40MG TAB (PROTONIX) PO SCH (21:20)
[2024-08-05] MEDS: DOCUSATE SODIUM 100MG CAPSULE PO SCH (21:20)
[2024-08-05] MEDS: SENNA 8.6 MG TAB (SENOKOT) PO SCH (21:20)
[2024-08-05] MEDS: ALPRAZolam 0.5 MG TAB PO PRN (21:20)
[2024-08-06 04:00] VITALS: BP 168/80; TEMP 97.1; O2SAT 92
[2024-08-06 07:48] LABS: BASO % 0.5 % (0.0-1.0); EOS # 0.3 10^3/uL (0.0-0.5); EOS % 5.3 % (0.0-3.0); HEMOGLOBIN 9.5 g/dl (12.0-15.5); LYMPH # 1.1 10^3/uL (1.5-5.0); LYMPH % 17.3 % (24.0-44.0); MEAN CORPUSCULAR HEMOGLOBIN 29.9 pg (27.0-33.0); MEAN CORPUSCULAR HGB CONC 32.8 g/dl (32.0-36.5); MEAN CORPUSCULAR VOLUME 91.2 fl (80.0-96.0); MONO # 0.6 10^3/uL (0.0-0.8); MONO % 9.4 % (2.0-8.0); NEUTROPHILS # 4.2 10^3/uL (1.5-8.5); NEUTROPHILS % 65.9 % (36.0-66.0); PLATELET COUNT, AUTOMATED 250 10^3/uL (150-450); RED BLOOD COUNT 3.18 10^6/uL (4.00-5.40); WHITE BLOOD COUNT 6.4 10^3/uL (4.0-10.0)
[2024-08-06 08:35] LABS: BLOOD UREA NITROGEN 16 MG/DL (9-23); CALCIUM LEVEL 8.4 MG/DL (8.3-10.6); CARBON DIOXIDE LEVEL 26 MMOL/L (20-31); CHLORIDE LEVEL 109 MMOL/L (98-107); GLOMERULAR FILTRATION RATE > 60.0 (>32); GLUCOSE, FASTING 98 MG/DL (74-106); POTASSIUM SERUM 4.2 MMOL/L (3.5-5.1); SODIUM LEVEL 141 MMOL/L (136-145)
[2024-08-06] MEDS: ESCITALOPRAM OXALATE 10 MG TAB (LEXAPRO) PO SCH (08:35)
[2024-08-06] MEDS: VITAMIN D 1,000 INTERNATIONAL UNITS TABLET PO SCH (08:36)
[2024-08-06] MEDS ORDERED: VITAMIN D 1,000 INTERNATIONAL UNITS TABLET PO SCH (09:00)
[2024-08-06 10:04] VITALS: BP 116/59
[2024-08-06 12:28] VITALS: BP 158/70; TEMP 97.4; O2SAT 96
[2024-08-06] MEDS: BISACODYL 5MG TAB PO ONE (12:31)
[2024-08-06 17:34] VITALS: BP 160/70
[2024-08-06 20:00] VITALS: BP 112/50; TEMP 97.7; O2SAT 93
[2024-08-07] VITALS (10 sets, daily range): BP systolic 82–188; BP diastolic 50–80; TEMP 97.8–98.7; O2SAT 91–98
[2024-08-07] MEDS: traMADol 50 MG TAB PO PRN (03:02)
[2024-08-07] MEDS: **hydrALAZINE HCL** 25 MG TAB PO PRN (03:20)
[2024-08-07 06:42] LABS: HEMATOCRIT 30.2 % (36.0-47.0); HEMOGLOBIN 9.8 g/dl (12.0-15.5); MEAN CORPUSCULAR HEMOGLOBIN 29.6 pg (27.0-33.0); MEAN CORPUSCULAR HGB CONC 32.5 g/dl (32.0-36.5); MEAN CORPUSCULAR VOLUME 91.2 fl (80.0-96.0); PLATELET COUNT, AUTOMATED 271 10^3/uL (150-450); RED BLOOD COUNT 3.31 10^6/uL (4.00-5.40); WHITE BLOOD COUNT 10.6 10^3/uL (4.0-10.0)
[2024-08-07] MEDS ORDERED: LOSARTAN 50MG TABLET PO ONE (10:15)
[2024-08-07] MEDS ORDERED: PREPARATION H OINTMENT (HEMORRHOID) PR PRN (10:30)
[2024-08-08 06:48] LABS: HEMATOCRIT 28.1 % (36.0-47.0); HEMOGLOBIN 9.2 g/dl (12.0-15.5); MEAN CORPUSCULAR HEMOGLOBIN 30.3 pg (27.0-33.0); MEAN CORPUSCULAR HGB CONC 32.7 g/dl (32.0-36.5); MEAN CORPUSCULAR VOLUME 92.4 fl (80.0-96.0); PLATELET COUNT, AUTOMATED 259 10^3/uL (150-450); RED BLOOD COUNT 3.04 10^6/uL (4.00-5.40); WHITE BLOOD COUNT 7.3 10^3/uL (4.0-10.0)
[2024-08-08] MEDS ORDERED: LOSARTAN 50MG TABLET PO SCH (09:00)
[2024-08-08 12:00] VITALS: BP 138/78; TEMP 97; O2SAT 93
[2024-08-08 20:00] VITALS: BP 140/52; TEMP 97.6; O2SAT 96
[2024-08-09] VITALS: BP 166/89
[2024-08-09 04:00] VITALS: BP 170/60; TEMP 98; O2SAT 91
[2024-08-09 12:14] VITALS: BP 162/70; TEMP 97.9; O2SAT 91
[2024-08-09 20:00] VITALS: BP 172/90; TEMP 97.8; O2SAT 90
[2024-08-10 00:05] VITALS: BP 160/88
[2024-08-10 00:30] VITALS: TEMP 97.5; O2SAT 85
[2024-08-10] MEDS ORDERED: ALBUTEROL 90 MCG/ACT 8GM HFA INHALER INH PRN (01:25)
[2024-08-10 04:00] VITALS: BP 158/60; TEMP 97.6; O2SAT 91
[2024-08-10 07:33] LABS: ALBUMIN 2.3 G/DL (3.2-5.2); ALKALINE PHOSPHATASE 111 U/L (46-116); ALT/SGPT < 9 U/L (7.0-40); AST/SGOT 22 U/L (<34); BILIRUBIN,DIRECT 0.3 MG/DL (<0.4); BILIRUBIN,TOTAL 0.7 MG/DL (0.3-1.2); MAGNESIUM LEVEL 1.7 MG/DL (1.8-2.4); TOTAL PROTEIN 5.3 G/DL (5.7-8.2)
[2024-08-10 07:38] LABS: PROCALCITONIN 0.12 ng/ml
[2024-08-10] MEDS ORDERED: FUROSEMIDE 40MG/4ML VIAL IV SCH (09:00)
[2024-08-10 12:15] LABS: BASO % 0.4 % (0.0-1.0); EOS # 0.3 10^3/uL (0.0-0.5); EOS % 3.3 % (0.0-3.0); HEMATOCRIT 31.7 % (36.0-47.0); HEMOGLOBIN 10.2 g/dl (12.0-15.5); LYMPH # 1.3 10^3/uL (1.5-5.0); LYMPH % 14.7 % (24.0-44.0); MEAN CORPUSCULAR HEMOGLOBIN 29.9 pg (27.0-33.0); MEAN CORPUSCULAR HGB CONC 32.2 g/dl (32.0-36.5); MONO # 0.8 10^3/uL (0.0-0.8); NEUTROPHILS # 6.4 10^3/uL (1.5-8.5); NEUTROPHILS % 71.9 % (36.0-66.0); PLATELET COUNT, AUTOMATED 336 10^3/uL (150-450); RED BLOOD COUNT 3.41 10^6/uL (4.00-5.40)
[2024-08-10 12:43] LABS: BLOOD UREA NITROGEN 15 MG/DL (9-23); CALCIUM LEVEL 8.8 MG/DL (8.3-10.6); CARBON DIOXIDE LEVEL 24 MMOL/L (20-31); CHLORIDE LEVEL 110 MMOL/L (98-107); CREATININE FOR GFR 0.86 MG/DL (0.55-1.30); GLOMERULAR FILTRATION RATE > 60.0 (>32); GLUCOSE, FASTING 102 MG/DL (74-106); POTASSIUM SERUM 3.9 MMOL/L (3.5-5.1); SODIUM LEVEL 142 MMOL/L (136-145)
[2024-08-10 12:50] VITALS: BP 168/70; TEMP 97.5; O2SAT 92
[2024-08-10] MEDS: FUROSEMIDE 40MG/4ML VIAL IV SCH (13:37)
[2024-08-10] MEDS ORDERED: **hydrALAZINE** 50 MG TAB PO PRN (16:15)
[2024-08-10 20:00] VITALS: BP 120/58; TEMP 97; O2SAT 92
[2024-08-11 04:00] VITALS: BP 146/65; TEMP 97.4; O2SAT 92
[2024-08-11 08:22] LABS: BASO # 0.1 10^3/uL (0.0-0.2); BASO % 0.5 % (0.0-1.0); EOS # 0.4 10^3/uL (0.0-0.5); EOS % 3.4 % (0.0-3.0); HEMATOCRIT 36.5 % (36.0-47.0); LYMPH # 2.1 10^3/uL (1.5-5.0); LYMPH % 18.4 % (24.0-44.0); MEAN CORPUSCULAR HEMOGLOBIN 30.1 pg (27.0-33.0); MEAN CORPUSCULAR HGB CONC 32.9 g/dl (32.0-36.5); MEAN CORPUSCULAR VOLUME 91.5 fl (80.0-96.0); MONO % 8.9 % (2.0-8.0); NEUTROPHILS # 7.9 10^3/uL (1.5-8.5); PLATELET COUNT, AUTOMATED 419 10^3/uL (150-450); RED BLOOD COUNT 3.99 10^6/uL (4.00-5.40); WHITE BLOOD COUNT 11.6 10^3/uL (4.0-10.0)
[2024-08-11 08:48] LABS: CALCIUM LEVEL 9.4 MG/DL (8.3-10.6); CREATININE FOR GFR 1.07 MG/DL (0.55-1.30); POTASSIUM SERUM 3.7 MMOL/L (3.5-5.1)
[2024-08-11] MEDS: CALCIUM CARBONATE 500 MG CHEW U/D PO PRN (09:04)
[2024-08-11 11:58] VITALS: BP 112/55; TEMP 97.2; O2SAT 96
[2024-08-11] MEDS: FUROSEMIDE 40 MG TAB PO SCH (12:04)
[2024-08-11] MEDS: POTASSIUM CHLORIDE 10MEQ SR TABLET PO SCH (12:05)
[2024-08-11 17:47] VITALS: BP 135/64
[2024-08-11 20:00] VITALS: BP 107/51; TEMP 98; O2SAT 93
[2024-08-12 04:00] VITALS: BP 117/60; TEMP 97.2; O2SAT 93
[2024-08-12 07:38] LABS: CALCIUM LEVEL 8.3 MG/DL (8.3-10.6); CREATININE FOR GFR 1.08 MG/DL (0.55-1.30); GLOMERULAR FILTRATION RATE 51.5 (>32); POTASSIUM SERUM 3.4 MMOL/L (3.5-5.1)
[2024-08-12 08:07] LABS: BASO % 0.5 % (0.0-1.0); EOS # 0.3 10^3/uL (0.0-0.5); HEMATOCRIT 32.1 % (36.0-47.0); HEMOGLOBIN 10.5 g/dl (12.0-15.5); LYMPH # 1.9 10^3/uL (1.5-5.0); LYMPH % 21.7 % (24.0-44.0); MEAN CORPUSCULAR HEMOGLOBIN 30.4 pg (27.0-33.0); MEAN CORPUSCULAR HGB CONC 32.7 g/dl (32.0-36.5); MONO # 0.8 10^3/uL (0.0-0.8); MONO % 9.5 % (2.0-8.0); NEUTROPHILS # 5.4 10^3/uL (1.5-8.5); NEUTROPHILS % 63.5 % (36.0-66.0); PLATELET COUNT, AUTOMATED 320 10^3/uL (150-450); RED BLOOD COUNT 3.45 10^6/uL (4.00-5.40); WHITE BLOOD COUNT 8.5 10^3/uL (4.0-10.0)
[2024-08-12 11:50] VITALS: BP 163/70; TEMP 97.8; O2SAT 96
[2024-08-12 11:59] VITALS: BP 152/68
[2024-08-12] MEDS: LOPERAMIDE 2 MG CAPLET PO ONE (14:14)
[2024-08-12 15:33] LABS: INR 1.13; PROTHROMBIN TIME 14.1 SECONDS (12.5-14.5)
[2024-08-12] MEDS: WARFARIN SOD 2.5MG TAB PO SCH (17:07)
[2024-08-12] MEDS: POTASSIUM CHLORIDE 10MEQ SR TABLET PO SCH (17:08)
[2024-08-12 20:00] VITALS: BP 106/54; TEMP 98.2; O2SAT 97
[2024-08-12] MEDS: ENOXAPARIN 100MG/1ML SYRINGE (J1650 PER 10MG) SC SCH (20:53)
[2024-08-12] MEDS: NYSTATIN 100,000 UNITS/GM TOPICAL PWD 15GM TOP SCH (20:53)
[2024-08-13 04:00] VITALS: BP 126/52; TEMP 97.8; O2SAT 94
[2024-08-13 07:34] LABS: BASO # 0.1 10^3/uL (0.0-0.2); BASO % 0.7 % (0.0-1.0); EOS # 0.4 10^3/uL (0.0-0.5); EOS % 4.5 % (0.0-3.0); HEMATOCRIT 34.9 % (36.0-47.0); HEMOGLOBIN 11.2 g/dl (12.0-15.5); LYMPH # 2.1 10^3/uL (1.5-5.0); LYMPH % 23.6 % (24.0-44.0); MEAN CORPUSCULAR HGB CONC 32.1 g/dl (32.0-36.5); MEAN CORPUSCULAR VOLUME 93.6 fl (80.0-96.0); MONO # 0.8 10^3/uL (0.0-0.8); MONO % 9.2 % (2.0-8.0); NEUTROPHILS # 5.4 10^3/uL (1.5-8.5); NEUTROPHILS % 61.1 % (36.0-66.0); PLATELET COUNT, AUTOMATED 360 10^3/uL (150-450); RED BLOOD COUNT 3.73 10^6/uL (4.00-5.40); WHITE BLOOD COUNT 8.9 10^3/uL (4.0-10.0)
[2024-08-13 07:45] LABS: INR 1.11
[2024-08-13 08:00] LABS: CALCIUM LEVEL 8.3 MG/DL (8.3-10.6); CREATININE FOR GFR 1.08 MG/DL (0.55-1.30); GLOMERULAR FILTRATION RATE 51.5 (>32); POTASSIUM SERUM 3.6 MMOL/L (3.5-5.1)
[2024-08-13 12:00] VITALS: BP 138/82; TEMP 98; O2SAT 95
[2024-08-13 20:00] VITALS: BP 133/62; TEMP 98.4; O2SAT 94
[2024-08-13] MEDS: LOPERAMIDE 2 MG CAPLET PO PRN (21:55)
[2024-08-14] VITALS: BP 152/68
[2024-08-14 04:00] VITALS: BP 132/61; TEMP 96.7; O2SAT 93
[2024-08-14 08:32] LABS: BASO # 0.1 10^3/uL (0.0-0.2); EOS # 0.4 10^3/uL (0.0-0.5); HEMATOCRIT 36.6 % (36.0-47.0); HEMOGLOBIN 11.5 g/dl (12.0-15.5); LYMPH # 1.6 10^3/uL (1.5-5.0); LYMPH % 19.7 % (24.0-44.0); MEAN CORPUSCULAR HEMOGLOBIN 29.6 pg (27.0-33.0); MEAN CORPUSCULAR HGB CONC 31.4 g/dl (32.0-36.5); MEAN CORPUSCULAR VOLUME 94.3 fl (80.0-96.0); MONO # 0.6 10^3/uL (0.0-0.8); MONO % 7.6 % (2.0-8.0); NEUTROPHILS # 5.2 10^3/uL (1.5-8.5); NEUTROPHILS % 65.9 % (36.0-66.0); PLATELET COUNT, AUTOMATED 400 10^3/uL (150-450); RED BLOOD COUNT 3.88 10^6/uL (4.00-5.40); WHITE BLOOD COUNT 7.9 10^3/uL (4.0-10.0)
[2024-08-14 08:43] LABS: INR 1.23; PROTHROMBIN TIME 15.1 SECONDS (12.5-14.5)
[2024-08-14 08:52] LABS: CALCIUM LEVEL 8.3 MG/DL (8.3-10.6); CREATININE FOR GFR 1.04 MG/DL (0.55-1.30); GLOMERULAR FILTRATION RATE 53.7 (>32); POTASSIUM SERUM 4.3 MMOL/L (3.5-5.1)
[2024-08-14 12:00] VITALS: BP 137/61; TEMP 97; O2SAT 93
[2024-08-14 20:00] VITALS: BP 145/66; TEMP 96.7; O2SAT 90
[2024-08-15 04:00] VITALS: BP 124/63; TEMP 97; O2SAT 92
[2024-08-15 07:07] LABS: BASO # 0.1 10^3/uL (0.0-0.2); BASO % 0.8 % (0.0-1.0); EOS # 0.3 10^3/uL (0.0-0.5); EOS % 3.9 % (0.0-3.0); HEMATOCRIT 36.3 % (36.0-47.0); HEMOGLOBIN 11.6 g/dl (12.0-15.5); LYMPH # 2.3 10^3/uL (1.5-5.0); LYMPH % 29.7 % (24.0-44.0); MEAN CORPUSCULAR VOLUME 93.8 fl (80.0-96.0); MONO # 0.7 10^3/uL (0.0-0.8); MONO % 9.3 % (2.0-8.0); NEUTROPHILS # 4.3 10^3/uL (1.5-8.5); NEUTROPHILS % 55.7 % (36.0-66.0); PLATELET COUNT, AUTOMATED 406 10^3/uL (150-450); RED BLOOD COUNT 3.87 10^6/uL (4.00-5.40); WHITE BLOOD COUNT 7.8 10^3/uL (4.0-10.0)
[2024-08-15 07:19] LABS: INR 1.2; PROTHROMBIN TIME 14.8 SECONDS (12.5-14.5)
[2024-08-15 07:46] LABS: CALCIUM LEVEL 8.9 MG/DL (8.3-10.6); CREATININE FOR GFR 1.06 MG/DL (0.55-1.30); GLOMERULAR FILTRATION RATE 52.6 (>32); POTASSIUM SERUM 4.2 MMOL/L (3.5-5.1)
[2024-08-15 12:17] VITALS: BP 123/58; TEMP 97.9; O2SAT 97
[2024-08-15 20:00] VITALS: BP 125/59; TEMP 97.6; O2SAT 93
[2024-08-16 04:00] VITALS: BP 132/68; TEMP 97.4; O2SAT 92
[2024-08-16 06:46] LABS: INR 1.53; PROTHROMBIN TIME 17.9 SECONDS (12.5-14.5)
[2024-08-16 11:54] VITALS: BP 135/61; TEMP 97.2; O2SAT 95
[2024-08-16 19:58] VITALS: BP 110/52; TEMP 97.6; O2SAT 96
[2024-08-17 04:00] VITALS: BP 139/62; TEMP 97.8; O2SAT 92
[2024-08-17 06:29] LABS: INR 1.75; PROTHROMBIN TIME 19.8 SECONDS (12.5-14.5)
[2024-08-17 12:00] VITALS: BP 124/61; TEMP 97.2; O2SAT 96
[2024-08-17 16:53] VITALS: BP 118/60
[2024-08-17 20:00] VITALS: BP 109/57; TEMP 97.7; O2SAT 93
[2024-08-18 04:00] VITALS: BP 138/62; TEMP 96.5; O2SAT 96
[2024-08-18 07:14] LABS: INR 2.03; PROTHROMBIN TIME 22.3 SECONDS (12.5-14.5)
[2024-08-18] MEDS ORDERED: FURO40TA2 PO (11:17)
[2024-08-18] MEDS ORDERED: JANT2.5T PO ×2 (11:17)
[2024-08-18] MEDS ORDERED: NYST10006 TOP (11:17)
[2024-08-18] MEDS ORDERED: TRAM50TA2 PO (11:17)
[2024-08-18] MEDS ORDERED: PREPOI PR (11:17)
[2024-08-18] MEDS ORDERED: PANT40TA29 PO (11:17)
[2024-08-18] MEDS ORDERED: POTA-136 PO (11:17)
[2024-08-18] MEDS ORDERED: LOPE2CA PO (11:17)
[2024-08-18 11:28] VITALS: BP 128/68
[2024-08-18] MEDS ORDERED: WARFARIN PO SCH (17:00)
== END 2024-08-18 12:10 | DRG 560 ==
LOC: M PM&R 16:10
PROVIDERS: ADMIT Physical Medicine & Rehabilitation; ATTEND Physical Medicine & Rehabilitation
DX: S52.125D Nondisplaced fracture of head of left radius, subsequent encounter for closed fracture with routine healing (principal); D62 Acute posthemorrhagic anemia; S52.135D Nondisplaced fracture of neck of left radius, subsequent encounter for closed fracture with routine healing; I48.91 Unspecified atrial fibrillation; I10 Essential (primary) hypertension; F41.9 Anxiety disorder, unspecified; F32.A Depression, unspecified; E55.9 Vitamin D deficiency, unspecified; E78.2 Mixed hyperlipidemia; Z85.3 Personal history of malignant neoplasm of breast; Z92.3 Personal history of irradiation; J45.909 Unspecified asthma, uncomplicated; K57.90 Diverticulosis of intestine, part unspecified, without perforation or abscess without bleeding; Z95.0 Presence of cardiac pacemaker; K44.9 Diaphragmatic hernia without obstruction or gangrene; Z66 Do not resuscitate; Z88.2 Allergy status to sulfonamides; Z88.5 Allergy status to narcotic agent; Z88.8 Allergy status to other drugs, medicaments and biological substances; Z79.899 Other long term (current) drug therapy; K29.60 Other gastritis without bleeding; K59.00 Constipation, unspecified

== ENCOUNTER → 2024-08-20 | Outpatient (REF) ==
[~2024-08-20] MED LIST changes: +FURO40TA2 PO; +JANT2.5T PO; +LOPE2CA PO; +NYST10006 TOP; +PANT40TA29 PO; +POTA-136 PO; +PREPOI PR; +TRAM50TA2 PO
[2024-08-20 09:22] LABS: INR 1.76; PROTHROMBIN TIME 19.9 SECONDS (12.5-14.5)
== END ==
LOC: SKLAB2 06:55
PROVIDERS: ATTEND Internal Medicine
DX: I48.91 Unspecified atrial fibrillation (principal)

== ENCOUNTER → 2024-08-22 | Outpatient (REF) | payer MEDICARE, OTHER | LOC: M SOG 07:54 → EDSTATUS 09:10 | PROVIDERS: ATTEND Physician Assistant | DX: Z00.00 Encounter for general adult medical examination without abnormal findings (principal) ==

== ENCOUNTER → 2024-09-08 | Outpatient (REF) ==
[2024-09-08 13:17] LABS: HEMATOCRIT 37.1 % (36.0-47.0); HEMOGLOBIN 11.7 g/dl (12.0-15.5); MEAN CORPUSCULAR HGB CONC 31.5 g/dl (32.0-36.5); MEAN CORPUSCULAR VOLUME 95.1 fl (80.0-96.0); PLATELET COUNT, AUTOMATED 172 10^3/uL (150-450); WHITE BLOOD COUNT 5.8 10^3/uL (4.0-10.0)
[2024-09-08 13:31] LABS: INR 3.1; PROTHROMBIN TIME 31.8 SECONDS (12.5-14.5)
[2024-09-08 13:36] LABS: ALBUMIN 3.1 G/DL (3.2-5.2); ALKALINE PHOSPHATASE 106 U/L (35-104); ALT/SGPT < 9 U/L (7.0-40); AST/SGOT 15 U/L (<34); BILIRUBIN,TOTAL 0.6 MG/DL (0.3-1.2); BLOOD UREA NITROGEN 22 MG/DL (9-23); CALCIUM LEVEL 9.3 MG/DL (8.3-10.6); CARBON DIOXIDE LEVEL 29 MMOL/L (20-31); CHLORIDE LEVEL 108 MMOL/L (98-107); CREATININE FOR GFR 1.03 MG/DL (0.55-1.30); GLOMERULAR FILTRATION RATE 54.3 (>32); GLUCOSE, FASTING 102 MG/DL (74-106); MAGNESIUM LEVEL 1.7 MG/DL (1.8-2.4); POTASSIUM SERUM 4.5 MMOL/L (3.5-5.1); SODIUM LEVEL 140 MMOL/L (136-145); TOTAL PROTEIN 6.3 G/DL (5.7-8.2)
== END ==
LOC: SKLAB2 10:43
PROVIDERS: ATTEND Internal Medicine
DX: I48.91 Unspecified atrial fibrillation (principal); Z79.01 Long term (current) use of anticoagulants

== ENCOUNTER → 2024-09-09 | Outpatient (REF) ==
[2024-09-09 10:55] LABS: HEMATOCRIT 39.6 % (36.0-47.0); HEMOGLOBIN 12.8 g/dl (12.0-15.5); MEAN CORPUSCULAR HEMOGLOBIN 30.6 pg (27.0-33.0); MEAN CORPUSCULAR HGB CONC 32.3 g/dl (32.0-36.5); MEAN CORPUSCULAR VOLUME 94.7 fl (80.0-96.0); PLATELET COUNT, AUTOMATED 222 10^3/uL (150-450); RED BLOOD COUNT 4.18 10^6/uL (4.00-5.40)
[2024-09-09 11:10] LABS: INR 2.9; PROTHROMBIN TIME 30.2 SECONDS (12.5-14.5)
[2024-09-09 11:21] LABS: CALCIUM LEVEL 9.6 MG/DL (8.3-10.6); CREATININE FOR GFR 1.12 MG/DL (0.55-1.30); GLOMERULAR FILTRATION RATE 49.3 (>32); POTASSIUM SERUM 4.4 MMOL/L (3.5-5.1)
== END ==
LOC: SKLAB2 10:09
PROVIDERS: ATTEND Internal Medicine
DX: I48.91 Unspecified atrial fibrillation (principal); Z51.81 Encounter for therapeutic drug level monitoring

== ENCOUNTER → 2024-09-11 | Outpatient (REF) | payer MEDICARE, OTHER | LOC: SKLAB2 07:10 | PROVIDERS: ATTEND Internal Medicine | DX: Z53.9 Procedure and treatment not carried out, unspecified reason (principal) ==

== ENCOUNTER → 2024-09-11 | Outpatient (REF) ==
[2024-09-11 11:21] LABS: INR 2.39; PROTHROMBIN TIME 26.1 SECONDS (12.5-14.5)
== END ==
LOC: SKLAB2 07:13
PROVIDERS: ATTEND Internal Medicine
DX: Z79.01 Long term (current) use of anticoagulants (principal)

== ENCOUNTER → 2024-09-18 | Outpatient (REF) ==
[2024-09-18 09:10] LABS: CALCIUM LEVEL 9.8 MG/DL (8.3-10.6); CREATININE FOR GFR 1.01 MG/DL (0.55-1.30); GLOMERULAR FILTRATION RATE 55.6 (>32); POTASSIUM SERUM 4.2 MMOL/L (3.5-5.1)
== END ==
LOC: SKLAB2 07:00
PROVIDERS: ATTEND Internal Medicine
DX: Z79.899 Other long term (current) drug therapy (principal)

== ENCOUNTER → 2024-09-18 | Outpatient (REF) ==
[2024-09-18 09:00] LABS: INR 2.24; PROTHROMBIN TIME 24.9 SECONDS (12.5-14.5)
== END ==
LOC: SKLAB2 07:00
PROVIDERS: ATTEND Internal Medicine
DX: I48.91 Unspecified atrial fibrillation (principal); Z79.01 Long term (current) use of anticoagulants

== ENCOUNTER → 2024-09-29 | Outpatient (CLI) | payer MEDICARE, OTHER | LOC: M SOG 07:55 | PROVIDERS: ATTEND Orthopaedic Surgery | DX: Z00.00 Encounter for general adult medical examination without abnormal findings (principal) ==

== ENCOUNTER → 2024-10-13 | Outpatient (CLI) | payer MEDICARE, OTHER | LOC: M SOG 07:58 | PROVIDERS: ATTEND Orthopaedic Surgery | DX: S52.122D Displaced fracture of head of left radius, subsequent encounter for closed fracture with routine healing (principal) ==

== ENCOUNTER → 2024-10-31 | Outpatient (CLI) | payer MEDICARE, OTHER ==
[2024-10-31 16:00] LABS: BASO % 0.4 % (0.0-1.0); EOS # 0.3 10^3/uL (0.0-0.5); EOS % 4.3 % (0.0-3.0); HEMATOCRIT 39.6 % (36.0-47.0); HEMOGLOBIN 12.7 g/dl (12.0-15.5); LYMPH # 1.7 10^3/uL (1.5-5.0); LYMPH % 23.2 % (24.0-44.0); MEAN CORPUSCULAR HEMOGLOBIN 30.1 pg (27.0-33.0); MEAN CORPUSCULAR HGB CONC 32.1 g/dl (32.0-36.5); MEAN CORPUSCULAR VOLUME 93.8 fl (80.0-96.0); MONO # 0.6 10^3/uL (0.0-0.8); MONO % 8.1 % (2.0-8.0); NEUTROPHILS # 4.6 10^3/uL (1.5-8.5); NEUTROPHILS % 63.7 % (36.0-66.0); PLATELET COUNT, AUTOMATED 221 10^3/uL (150-450); RED BLOOD COUNT 4.22 10^6/uL (4.00-5.40); WHITE BLOOD COUNT 7.3 10^3/uL (4.0-10.0)
[2024-10-31 16:43] LABS: ALBUMIN 3.6 G/DL (3.2-5.2); ALKALINE PHOSPHATASE 111 U/L (35-104); ALT/SGPT < 9 U/L (7.0-40); AST/SGOT 16 U/L (<34); BILIRUBIN,TOTAL 0.3 MG/DL (0.3-1.2); BLOOD UREA NITROGEN 25 MG/DL (9-23); CALCIUM LEVEL 9.5 MG/DL (8.3-10.6); CARBON DIOXIDE LEVEL 28 MMOL/L (20-31); CHLORIDE LEVEL 105 MMOL/L (98-107); CREATININE FOR GFR 1.03 MG/DL (0.55-1.30); GLOMERULAR FILTRATION RATE 54.3 (>32); GLUCOSE, FASTING 95 MG/DL (74-106); POTASSIUM SERUM 4.3 MMOL/L (3.5-5.1); SODIUM LEVEL 142 MMOL/L (136-145); TOTAL PROTEIN 6.9 G/DL (5.7-8.2)
== END ==
LOC: M PLALAB 13:28
PROVIDERS: ATTEND Nurse Practitioner Family
DX: Z01.818 Encounter for other preprocedural examination (principal)

== ENCOUNTER 2024-11-13 06:26 | Day surgery (SDC) | payer MEDICARE, OTHER ==
[~2024-11-13] VITALS: Ht 167.6 cm; Wt 97.1 kg
[~2024-11-13 06:26] MED LIST changes: +ALPR0.25 PO; +DIGO0.123 PO; +ERGO500029 PO; +FURO20TA2 PO; +METO100T5 PO; +POTA10CA70 PO; +SPIR-10 PO
[2024-11-13] MEDS ORDERED: propofoL 200 MG/20 ML VIAL As Ordered ONE (06:54)
[2024-11-13] MEDS ORDERED: LIDOCAINE 2% 100MG/5ML SDV (FOR ANES.) As Ordered ONE (06:54)
[2024-11-13] MEDS ORDERED: ONDANSETRON 4MG 2ML VIAL As Ordered ONE (06:54)
[2024-11-13] MEDS ORDERED: fentaNYL 100 MCG/2 ML INJECTION As Ordered ONE (06:56)
[2024-11-13] MEDS ORDERED: ceFAZolin 2 GM/D5W 50 ML IV BAG As Ordered ONE (07:35)
[2024-11-13] MEDS: ceFAZolin SOD 2 GM in IV 1 EA IV ONE (07:43)
[2024-11-13] MEDS ORDERED: ACETAMINOPHEN 1000MG/100ML IV BAG As Ordered ONE (07:45)
[2024-11-13] MEDS ORDERED: PHENYLephrine 500MCG 5ML (100MCG/ML) SYRINGE As Ordered ONE (08:05)
[2024-11-13] MEDS ORDERED: ONDANSETRON 4MG 2ML VIAL IV PRN ×2 (08:35→08:55)
[2024-11-13] MEDS ORDERED: OXYC1TAB23 PO (08:50)
[2024-11-13] MEDS ORDERED: HYDROMORPHONE HCL 0.5 MG/ 0.5 ML SYRINGE IV PRN (08:55)
[2024-11-13] MEDS ORDERED: LR 1,000 ML IV SCH (08:55)
[2024-11-13] MEDS ORDERED: ceFAZolin SOD 2 GM in IV 1 EA IV ONE (09:00)
[2024-11-13] MEDS: fentaNYL 100 MCG/2 ML INJECTION IV PRN (09:04)
[2024-11-13] MEDS: oxyCODONE 5MG TAB PO PRN (09:27)
[2024-11-13 10:05] VITALS: BP 157/75; TEMP 97.4; O2SAT 93
== END 2024-11-13 11:31 | disposition home or self-care (01) ==
LOC: M SDC 06:26
PROVIDERS: ATTEND Orthopaedic Surgery
DX: S42.202D Unspecified fracture of upper end of left humerus, subsequent encounter for fracture with routine healing (principal); X58.XXXD Exposure to other specified factors, subsequent encounter; I48.0 Paroxysmal atrial fibrillation; I49.5 Sick sinus syndrome; I11.0 Hypertensive heart disease with heart failure; I50.30 Unspecified diastolic (congestive) heart failure; Z79.899 Other long term (current) drug therapy; Z79.01 Long term (current) use of anticoagulants; R32 Unspecified urinary incontinence; Z95.0 Presence of cardiac pacemaker; Z85.3 Personal history of malignant neoplasm of breast; Z92.3 Personal history of irradiation; Z90.49 Acquired absence of other specified parts of digestive tract; Z87.19 Personal history of other diseases of the digestive system; Z88.8 Allergy status to other drugs, medicaments and biological substances; Z88.1 Allergy status to other antibiotic agents; Z88.2 Allergy status to sulfonamides; Z88.5 Allergy status to narcotic agent
CPT/HCPCS: 20680; 76000; J0131; J0690; J1100; J2371; J2405; J3010

== ENCOUNTER → 2024-11-25 | Outpatient (CLI) | payer MEDICARE, OTHER ==
[~2024-11-25] MED LIST changes: +OXYC1TAB23 PO
== END ==
LOC: M SOG 08:07
PROVIDERS: ATTEND Physician Assistant
DX: S52.122D Displaced fracture of head of left radius, subsequent encounter for closed fracture with routine healing (principal)

== ENCOUNTER → 2024-11-27 | Outpatient (REF) | payer MEDICARE, OTHER | PROVIDERS: ATTEND Nurse Practitioner Family | DX: J02.9 Acute pharyngitis, unspecified (principal); R09.89 Other specified symptoms and signs involving the circulatory and respiratory systems ==

== ENCOUNTER → 2025-01-09 | Outpatient (CLI) | payer MEDICARE, OTHER ==
[~2025-01-09] MED LIST changes: -ELIM5CRE2 TOP; +PERM60CR8 TOP
== END ==
LOC: M SOG 12:14
PROVIDERS: ATTEND Orthopaedic Surgery
DX: S52.122D Displaced fracture of head of left radius, subsequent encounter for closed fracture with routine healing (principal)

== ENCOUNTER → 2025-05-18 | Outpatient (REF) | payer MEDICARE, OTHER ==
[2025-05-18 10:11] LABS: BASO # 0.0 10^3/uL (0.0-0.2); BASO % 0.7 % (0.0-1.0); EOS # 0.3 10^3/uL (0.0-0.5); EOS % 4.8 % (0.0-3.0); LYMPH # 2.0 10^3/uL (1.5-5.0); LYMPH % 34.5 % (24.0-44.0); MONO # 0.5 10^3/uL (0.0-0.8); MONO % 7.6 % (2.0-8.0); NEUTROPHILS # 3.1 10^3/uL (1.5-8.5); NEUTROPHILS % 52.2 % (36.0-66.0); PLATELET COUNT, AUTOMATED 217 10^3/uL (150-450)
[2025-05-18 10:44] LABS: ALT/SGPT < 9 U/L (7.0-40); AST/SGOT 20 U/L (<34); CALCIUM LEVEL 9.5 MG/DL (8.3-10.6); CARBON DIOXIDE LEVEL 25 MMOL/L (20-31); CHLORIDE LEVEL 105 MMOL/L (98-107); CREATININE FOR GFR 1.10 MG/DL (0.55-1.30); GLOMERULAR FILTRATION RATE 49.6 (>32); POTASSIUM SERUM 4.9 MMOL/L (3.5-5.1); SODIUM LEVEL 142 MMOL/L (136-145)
== END ==
PROVIDERS: ATTEND Nurse Practitioner Family
DX: I10 Essential (primary) hypertension (principal)